=== PATIENT | male | born 1975 | race Caucasian/White ===

== ENCOUNTER 2016-10-31 14:56 | Emergency (ER) | payer MEDICAID ==
[2016-10-31] MEDS ORDERED: NORMAL SALINE 1000 ML 1,000 ML IV PRN (15:53)
[2016-10-31 16:34] LABS: ABSOLUTE BASOPHILS # (AUTO) 0.1 10^3/uL (0.0-0.2); ABSOLUTE EOSINOPHILS # (AUTO) 0.2 10^3/uL (0.0-0.6); ABSOLUTE LYMPHOCYTES (AUTO) 0.6 10^3/uL (0.5-4.7); BASOPHILS % (AUTO) 0.9 % (0-2); EOSINOPHILS % (AUTO) 1.5 % (0-6); HEMOGLOBIN 16.5 g/dL (13.5-17.0); HGB HCT DIFFERENCE 0.5; LYMPHOCYTES % (AUTO) 5.5 % (13-45); MEAN CORPUSCULAR HEMOGLOBIN 36.1 pg (27.0-33.4); MEAN CORPUSCULAR HGB CONC 33.5 g/dL (32.0-36.0); MEAN CORPUSCULAR VOLUME 108 fl (80-97); RED BLOOD COUNT 4.56 10^6/uL (4.35-5.55); RED CELL DISTRIBUTION WIDTH 17.9 % (11.5-14.0); SEGMENTED NEUTROPHILS % (AUTO) 83.1 % (42-78); WHITE BLOOD COUNT 10.9 10^3/uL (4.0-10.5)
[2016-10-31 16:50] LABS: ANION GAP 8 (5-19); BLOOD UREA NITROGEN 7 mg/dL (7-20); CALCIUM 9.1 mg/dL (8.4-10.2); CARBON DIOXIDE 29 mmol/L (22-30); CHLORIDE 104 mmol/L (98-107); CREATININE RESULT 0.76 mg/dL (0.52-1.25); GLUCOSE 94 mg/dL (75-110); SODIUM 140.5 mmol/L (137-145)
[2016-10-31 16:52] LABS: ALCOHOL < 10 mg/dL (NONE DETECTED)
[2016-10-31] MEDS ORDERED: LEVETIRACETAM 1000 MG/NACL-ISO 100 ML IV ONE (17:50)
--- NOTE | 2016-10-31 17:57 | ER Document Report ---
ED General - General Chief Complaint: Probable Seizure Stated Complaint: POSSIBLE SEIZURES TRAVEL OUTSIDE OF THE [place] IN LAST 30 DAYS: No - HPI Patient complains to provider of: possible seizures Notes: Patient coming in for evaluation seizures. States has a history of epilepsy and is on Dilantin however is undertaken his medication. Patient states he does drink approximately 340 ounces a day. Patient states he has continued to drink does not while stopping. Patient states that he has had 6 seizures always been unwitnessed. Otherwise patient has no complaints upon my evaluation. Denies fevers chills nausea vomiting - Related Data Allergies/Adverse Reactions: No Known Allergies Allergy (Verified 10/31/16 15:28) Past Medical History - Social History Smoking Status: Unknown if Ever Smoked Family History: None Neurological Medical History: Reports: Hx Seizures Musculoskeltal Medical History: Reports Hx Musculoskeletal Deformity, Reports Hx Musculoskeletal Trauma Psychiatric Medical History: Reports: Hx Depression Traumatic Medical History: Reports: Hx Spleen Laceration/Rupture, Hx Traumatic Brain Injury - 2009 Past Surgical History: Reports: Hx Abdominal Surgery - bowel obstruction colon resection, Hx Orthopedic Surgery - Shoulder, arm, and jaw surgery - Immunizations Immunizations up to date: Yes Hx Diphtheria, Pertussis, Tetanus Vaccination: Yes Review of Systems - Review of Systems Constitutional: No symptoms reported EENT: No symptoms reported Cardiovascular: No symptoms reported Respiratory: No symptoms reported Gastrointestinal: No symptoms reported Genitourinary: No symptoms reported Male Genitourinary: No symptoms reported Musculoskeletal: No symptoms reported Skin: No symptoms reported Hematologic/Lymphatic: No symptoms reported Neurological/Psychological: Seizure -: Yes All other systems reviewed and negative Physical Exam - Vital signs Vitals: Temp Pulse Resp BP Pulse Ox 97.8 F 78 18 124/68 95 10/31/16 15:28 10/31/16 15:28 10/31/16 15:28 10/31/16 15:28 10/31/16 15:28 Interpretation: Normal - General General appearance: Appears well, Alert - HEENT Head: Normocephalic, Atraumatic Eyes: Normal Pupils: PERRL - Respiratory Respiratory status: No respiratory distress Chest status: Nontender Breath sounds: Normal Chest palpation: Normal - Cardiovascular Rhythm: Regular Heart sounds: Normal auscultation Murmur: No - Abdominal Inspection: Normal Distension: No distension Bowel sounds: Normal Tenderness: Nontender Organomegaly: No organomegaly - Back Back: Normal, Nontender - Extremities General upper extremity: Normal inspection, Nontender, Normal color, Normal ROM , Normal temperature General lower extremity: Normal inspection, Nontender, Normal color, Normal ROM , Normal temperature, Normal weight bearing. No: Joel's sign - Neurological Neuro grossly intact: Yes Cognition: Normal Orientation: AAOx4 [place] Coma Scale Eye Opening: Spontaneous [place] Coma Scale Verbal: Oriented [place] Coma Scale Motor: Obeys Commands [place] Coma Scale Total: 15 Speech: Normal Motor strength normal: LUE, RUE, LLE, RLE Sensory: Normal - Psychological Associated symptoms: Normal affect, Normal mood - Skin Skin Temperature: Warm Skin Moisture: Dry Skin Color: Normal Course - Re-evaluation Re-evalutation: 10/31/16 22:30 Patient coming in for evaluation seizures.Breakthough seizure with known seizure disorder and previous neurology evaluation. Now returned to neuro baseline. Labs reviewed. No indication of new or acute process. Patient appears safe for discharge with observation and close outpatient F/U with PCP or neurology. Seizure warnings discussed with patient / family. Will load patient with Keppra - Vital Signs Vital signs: Temp Pulse Resp BP Pulse Ox 98.6 F 78 20 115/80 96 10/31/16 19:01 10/31/16 15:28 10/31/16 19:01 10/31/16 19:01 10/31/16 19:01 - Laboratory Result Diagrams: 10/31/16 16:16 10/31/16 16:16 Laboratory results interpreted by me: 10/31/16 10/31/16 16:16 16:16 WBC 10.9 H MCV 108 H MCH 36.1 H RDW 17.9 H Seg Neutrophils % 83.1 H Lymphocytes % 5.5 L Absolute Neutrophils 9.0 H Phenytoin < 3.0 L Discharge - Discharge Clinical Impression: Seizure, Noncompliance with medication regimen Disposition: HOME, SELF-CARE Instructions: Seizure, Known Epileptic ([facility]) Additional Instructions: Your laboratory studies today show no critical etiology. To help you prevent seizures you will need to take seizure medication. Your Dilantin level today is 0. Will try you on Keppra please be sure that you follow-up with your neurologist. Prescriptions: Levetiracetam [Keppra 500 mg Tablet] 500 mg PO Q12 #60 tablet
[2016-10-31 19:30] VITALS: BP 115/80
== END 2016-10-31 19:34 | disposition home or self-care (01) ==
LOC: ER 14:56
DX: G40.909 Epilepsy, unspecified, not intractable, without status epilepticus (principal); Z91.14 Patient's other noncompliance with medication regimen; Z87.820 Personal history of traumatic brain injury
CPT/HCPCS: 99284; 96361; 96374; 36415; 80307; 80185; 85025; 80048; J7030; J1953

== ENCOUNTER 2016-11-05 12:55 | Emergency (ER) | payer MEDICAID ==
[2016-11-05] MEDS ORDERED: ONDANSETRON HCL INJ/PF 4 MG/2 ML SDV IV ONE ×3 (13:51→14:44)
--- NOTE | 2016-11-05 14:06 | ER Document Report ---
ED Seizure - General Mode of Arrival: Medic Information source: Patient - HPI Patient complains to provider of: History of seizures Preceding symptoms/context: Recent alcohol intake Injuries: None Associated Symptoms: Other - Nausea <FRANCYCARRIEMIKHAIL - Last Filed: 11/05/16 15:01> <JOSE LUIS SALGADO - Last Filed: 11/17/16 13:03> - General Chief Complaint: Vomiting Stated Complaint: POSSIBLE SEIZURE Notes: Patient is a 41-year-old male presenting to the emergency department after having a seizure earlier today. Patient states that he drinks heavily, 10 beers daily on average. Patient was drinking heavily last night, and states that his last beer was in the middle of the night. Patient states that he has a history of seizures, and was put on Keppra, which he does not take because he says it does not help. Patient admits that he has never taken the medication on a regular basis. Patient denies being exposed to anyone with recent illness. (MIKHAIL SEN) - Related Data Allergies/Adverse Reactions: No Known Allergies Allergy (Verified 10/31/16 15:28) Past Medical History - General Information source: Patient - Social History Smoking Status: Unknown if Ever Smoked Frequency of alcohol use: Heavy Drug Abuse: None Lives with: Family Family History: None, Reviewed & Not Pertinent Neurological Medical History: Reports: Hx Seizures Musculoskeltal Medical History: Reports Hx Musculoskeletal Deformity, Reports Hx Musculoskeletal Trauma Psychiatric Medical History: Reports: Hx Depression Traumatic Medical History: Reports: Hx Spleen Laceration/Rupture, Hx Traumatic Brain Injury - 2009 Past Surgical History: Reports: Hx Abdominal Surgery - bowel obstruction colon resection, Hx Orthopedic Surgery - Shoulder, arm, and jaw surgery - Immunizations Immunizations up to date: Yes Hx Diphtheria, Pertussis, Tetanus Vaccination: Yes <MIKHAIL SEN - Last Filed: 11/05/16 15:01> Review of Systems - Review of Systems Constitutional: No symptoms reported EENT: No symptoms reported Cardiovascular: No symptoms reported Respiratory: No symptoms reported Gastrointestinal: See HPI, Nausea, Vomiting Genitourinary: No symptoms reported Male Genitourinary: No symptoms reported Musculoskeletal: No symptoms reported Skin: No symptoms reported Hematologic/Lymphatic: No symptoms reported Neurological/Psychological: See HPI, Seizure <MIKHAIL SEN - Last Filed: 11/05/16 15:01> Physical Exam - Vital signs Interpretation: Hypertensive - General General appearance: Alert - HEENT Head: Normocephalic, Atraumatic Eyes: Normal Pupils: PERRL - Respiratory Respiratory status: No respiratory distress Chest status: Nontender Breath sounds: Normal Chest palpation: Normal - Cardiovascular Rhythm: Regular Heart sounds: Normal auscultation Murmur: No - Abdominal Inspection: Normal Distension: No distension Bowel sounds: Normal Tenderness: Nontender Organomegaly: No organomegaly - Back Back: Normal, Nontender - Extremities General upper extremity: Normal inspection, Nontender, Normal color, Normal ROM , Normal temperature General lower extremity: Normal inspection, Nontender, Normal color, Normal ROM , Normal temperature - Neurological Neuro grossly intact: Yes Cognition: Normal [place] Coma Scale Eye Opening: Spontaneous [place] Coma Scale Verbal: Oriented Matthew Coma Scale Motor: Obeys Commands Matthew Coma Scale Total: 15 Speech: Normal - Psychological Associated symptoms: Normal affect, Agitated - Skin Skin Temperature: Warm Skin Moisture: Dry Skin Color: Normal <MIKHAIL SEN - Last Filed: 11/05/16 15:01> Course <MIKHAIL SEN - Last Filed: 11/05/16 15:01> - Laboratory Result Diagrams: 11/05/16 14:56 11/05/16 14:56 <JOSE LUIS SALGADO - Last Filed: 11/17/16 13:03> - Re-evaluation Re-evalutation: 11/05/16 22:21 I personally performed the services described in the documentation, reviewed and edited the documentation which was dictated to my scribe in my presence, and it accurately records my words and actions. Patient presents emergency department status post seizure. Patient has a history of chronic disease or disorder noncompliant on medications and chronic alcoholism. Seen and evaluated recently ED doc put him on Keppra for recurrent seizures. Positive for cocaine and alcohol last drink last night. Alcohol level is negative here. Patient had a witnessed seizure in the ER. Nonfocal in nature loaded with Dilantin back to baseline mental status no neurological deficits. Given fluids reassessment awake and alert GCS of 15 no neurological deficits tolerating by mouth fluids ambulatory wants to go home. Long discussion with the patient on usage of the seizure medications to prevent recurrent seizures. In addition to that mixing that with alcohol and cocaine. Patient does not recollect when he last used cocaine but is in his system so to the last 48 hours. EKG is stable no chest pain or cardiac complaints. Wants to go home has a significant other that I can take him home at this point. Given him instructions to take his Keppra which he says he has at home and is felt. Primary care physician one to 2 days return for increasing worsening or new symptoms 11/05/16 22:25 (JOSE LUIS SALGADO) - Vital Signs Vital signs: Temp Pulse Resp BP Pulse Ox 97.6 F 93 12 134/97 H 96 11/05/16 23:20 11/05/16 14:01 11/05/16 23:18 11/05/16 23:18 11/05/16 23:18 (JOSE LUIS SALGADO) - Laboratory Laboratory results interpreted by me: 11/05/16 11/05/16 11/05/16 14:56 14:56 16:47 WBC 12.7 H MCV 106 H MCH 36.1 H RDW 16.8 H Seg Neuts % (Manual) 89 H Lymphocytes % (Manual) 4 L Abs Neuts (Manual) 11.3 H Potassium 3.5 L BUN 5 L Urine Protein 30 H Urine Ketones 20 H Urine Blood SMALL H Salicylates < 1.0 L Acetaminophen < 10 L (JOSE LUIS SALGADO) - EKG Interpretation by Me Additional EKG results interpreted by me: 11/05/16 22:25 EKG interpreted by myself to reveal sinus rhythm at [address] segment elevation or depression (JOSE LUIS SALGADO) Discharge <MIKHAIL SEN - Last Filed: 11/05/16 15:01> <JOSE LUIS SALGADO - Last Filed: 11/17/16 13:03> - Discharge Clinical Impression: seizure disorder with history of seizure, cocaine positive tox screen, History of alcohol abuse Condition: Stable Disposition: HOME, SELF-CARE Additional Instructions: Seizure, Known Epileptic You have had a seizure. Seizures may "break through" in an epileptic due to stress of infection or injury, a change in blood chemistry, or drug and alcohol use. Another common cause is failure to take medication as prescribed. Your doctor has evaluated your situation for the likely cause of this seizure. It is important that you follow his advice concerning any medication changes and follow-up care. Further testing of anti-seizure medication levels in your blood may be necessary. If you have a intermodal truck driver's license, it's important that you DO NOT DRIVE until given permission by your physician. This seizure must be reported to the intermodal truck driver 's license bureau. Call the doctor or return if seizures recur, or if new or unusual symptoms arise -- such as severe headache, confusion, excessive sleepiness, local weakness or numbness, neck stiffness, or fever. Cocaine Abuse Cocaine causes many dangerous medical problems. Problems can occur even with "usual" amounts. Cocaine affects judgement, creating a sense of invulnerability. Cocaine users often make bad decisions that seem "great" at the time. Most cocaine users eventually will be hurt by bad job performance, damaged personal relations, crime, and unsafe sexual practices. Toxic effects of cocaine can include seizures, hallucinations, delusions, high blood pressure, heart damage, or sudden . There's always the risk of a "bad batch." But heart attacks, brain hemorrhages, or cardiac arrest can occur unpredictably even with "normal" use. Injection of cocaine is risky for abscesses, endocarditis (heart infection) , pneumonia, and AIDS. Withdrawal from cocaine often causes anxiety and drug cravings. Some users become paranoid and psychotic. Many treatment programs are available, but you must make the decision to quit. Medication can be prescribed to control the symptoms of cocaine toxicity (beta blockers or benzodiazepines). Withdrawal symptoms may require tranquilizers. Vomiting Vomiting can be part of many illnesses. Most cases of vomiting are due to gastroenteritis, usually a viral infection in the intestinal tract. There is no specific treatment. The disease will end by itself. For now, the main danger to your child is dehydration. During the first few hours of the illness, give clear liquids, such as Pedialyte. Try to give small quantities frequently, such as a teaspoon of liquid every minute or about an ounce of fluids every five to ten minutes. Medications may be prescribed by the physician for special cases. After an hour or two of fluids without vomiting, add rice cereal, toast, applesauce, or bananas and other more solid foods to the clear liquids. Call the physician or go to the hospital if vomiting increases or blood appears in the bowel movement or vomitus; if your child fails to improve, or if signs of dehydration occur (no wet diapers for eight to twelve hours, tongue and mouth become dry, not acting as alert as usual). Referrals: [facility] [Provider Group] - Follow up as needed (Follow-up in 1- 2 days return for increasing worsening or new symptoms. Please take seizure medication as prescribed. Return to the ER sooner for increasing worsening or new symptoms) Scribe Documentation - Scribe Written by Roselinee:: Mikhail Sen 11/05/2016 1405 acting as scribe for :: Supa <MIKHAIL SEN - Last Filed: 11/05/16 15:01>
[2016-11-05] MEDS ORDERED: NORMAL SALINE 1000 ML 1,000 ML IV ONE (14:44)
[2016-11-05 15:19] LABS: HEMATOCRIT 48.6 % (37.9-51.0); HEMOGLOBIN 16.5 g/dL (13.5-17.0); HGB HCT DIFFERENCE 0.9; MEAN CORPUSCULAR HEMOGLOBIN 36.1 pg (27.0-33.4); MEAN CORPUSCULAR VOLUME 106 fl (80-97); RED BLOOD COUNT 4.58 10^6/uL (4.35-5.55); RED CELL DISTRIBUTION WIDTH 16.8 % (11.5-14.0); WHITE BLOOD COUNT 12.7 10^3/uL (4.0-10.5)
[2016-11-05 15:36] LABS: ALANINE AMINOTRANSFERASE 21 U/L (21-72); ALCOHOL < 10 mg/dL (NONE DETECTED); ALKALINE PHOSPHATASE 114 U/L (38-126); ANION GAP 11 (5-19); ASPARTATE AMINO TRANSFERASE 40 U/L (17-59); BLOOD UREA NITROGEN 5 mg/dL (7-20); CALCIUM 9.2 mg/dL (8.4-10.2); CARBON DIOXIDE 29 mmol/L (22-30); CHLORIDE 101 mmol/L (98-107); CREATININE RESULT 0.65 mg/dL (0.52-1.25); GLUCOSE 104 mg/dL (75-110); POTASSIUM 3.5 mmol/L (3.6-5.0); SODIUM 141.4 mmol/L (137-145); TOTAL PROTEIN 7.9 g/dL (6.3-8.2)
[2016-11-05] MEDS ORDERED: PHENYTOIN SODIUM INJ/PF 250 MG/5 ML SDV IV ONE (15:54)
[2016-11-05 15:55] LABS: BASOPHILS % (MANUAL) 0 % (0-2); EOSINOPHILS % (MANUAL) 0 % (0-6); LYMPHOCYTES % (MANUAL) 4 % (13-45); TOTAL CELLS COUNTED 100
[2016-11-05 15:57] LABS: ANISOCYTOSIS 1+; POLYCHROMASIA SLIGHT; TARGET CELLS SLIGHT; TOXIC GRANULATION SLIGHT
[2016-11-05 17:34] LABS: URINE BARBITURATES SCREEN NEGATIVE; URINE METHADONE SCREEN NEGATIVE; URINE OPIATES LOW NEGATIVE; URINE PHENCYCLIDINE SCREEN NEGATIVE
[2016-11-05 17:35] LABS: APPEARANCE,URINE CLEAR; BILIRUBIN,URINE NEGATIVE (NEGATIVE); GLUCOSE, URINE NEGATIVE (NEGATIVE); KETONES,URINE 20 mg/dL (NEGATIVE); LEUKOCYTE ESTERASE,URINE NEGATIVE (NEGATIVE); NITRITE,URINE NEGATIVE (NEGATIVE); PROTEIN,URINE 30 mg/dL (NEGATIVE); URINE SPECIFIC GRAVITY 1.011; UROBILINOGEN,URINE NEGATIVE mg/dL (<2.0)
[2016-11-05 23:35] VITALS: BP 134/97
--- NOTE | 2016-11-06 08:32 | EKG REPORT ---
SEVERITY:- NORMAL ECG - SINUS RHYTHM : Confirmed by: Guillermo Toro MD 06-Nov-2016 08:31:29
--- NOTE | 2016-11-06 08:32 | EKG REPORT ---
SEVERITY:- ABNORMAL ECG - SINUS RHYTHM ABNRM R PROG, CONSIDER ASMI OR LEAD PLACEMENT : Confirmed by: Guillermo Toro MD 06-Nov-2016 08:31:19
== END 2016-11-05 23:25 | disposition home or self-care (01) ==
LOC: ER 12:55
DX: G40.909 Epilepsy, unspecified, not intractable, without status epilepticus (principal); F14.90 Cocaine use, unspecified, uncomplicated; F10.20 Alcohol dependence, uncomplicated; R11.2 Nausea with vomiting, unspecified; Z91.14 Patient's other noncompliance with medication regimen; Z87.820 Personal history of traumatic brain injury
CPT/HCPCS: 93005; 96376; 99285; 96361; 96374; 96375; 36415; 80307 ×4; 85025; 80053; 81001; 70450; 93010; J1165; J2405; J7030

== ENCOUNTER 2017-04-08 12:27 | Emergency (ER) | payer MEDICAID ==
[2017-04-08] MEDS ORDERED: NORMAL SALINE 1000 ML 1,000 ML IV ONE ×2 (13:14→14:47)
[2017-04-08] MEDS ORDERED: ONDANSETRON HCL INJ/PF 4 MG/2 ML SDV IV ONE (13:14)
[2017-04-08] MEDS ORDERED: METOCLOPRAMIDE HCL INJ/PF 10 MG/2 ML SDV IV ONE (13:51)
[2017-04-08 14:06] LABS: ABSOLUTE LYMPHOCYTES (AUTO) 0.8 10^3/uL (0.5-4.7); ABSOLUTE NEUT (AUTO) 8.1 10^3/uL (1.7-8.2); BASOPHILS % (AUTO) 0.2 % (0-2); EOSINOPHILS % (AUTO) 0.2 % (0-6); HEMATOCRIT 51.1 % (37.9-51.0); HEMOGLOBIN 17.5 g/dL (13.5-17.0); HGB HCT DIFFERENCE 1.4; LYMPHOCYTES % (AUTO) 7.8 % (13-45); MEAN CORPUSCULAR HEMOGLOBIN 34.3 pg (27.0-33.4); MEAN CORPUSCULAR HGB CONC 34.3 g/dL (32.0-36.0); MEAN CORPUSCULAR VOLUME 100 fl (80-97); MONOCYTES % (AUTO) 10.1 % (3-13); RED BLOOD COUNT 5.11 10^6/uL (4.35-5.55); SEGMENTED NEUTROPHILS % (AUTO) 81.7 % (42-78)
[2017-04-08 14:30] LABS: ALANINE AMINOTRANSFERASE 34 U/L (21-72); ALBUMIN 4.6 g/dL (3.5-5.0); ALKALINE PHOSPHATASE 65 U/L (38-126); ANION GAP 18 (5-19); ASPARTATE AMINO TRANSFERASE 42 U/L (17-59); BILIRUBIN,DIRECT 0.3 mg/dL (0.0-0.4); BLOOD UREA NITROGEN 8 mg/dL (7-20); CALCIUM 9.2 mg/dL (8.4-10.2); CARBON DIOXIDE 22 mmol/L (22-30); CHLORIDE 92 mmol/L (98-107); CREATININE RESULT 0.76 mg/dL (0.52-1.25); GLUCOSE 130 mg/dL (75-110); LIPASE 128.1 U/L (23-300); SODIUM 131.8 mmol/L (137-145); TOTAL PROTEIN 8.1 g/dL (6.3-8.2)
--- NOTE | 2017-04-08 14:48 | ER Document Report ---
ED GI/ - General Chief Complaint: Nausea/Vomiting/Diarrhea Stated Complaint: NAUSEA Time Seen by Provider: 04/08/17 13:13 Mode of Arrival: Ambulatory Information source: Patient Notes: Patient is a 41-year-old male with a history of seizures and alcohol abuse who presents to the ER today for nausea, vomiting, diarrhea 3 days. Patient states that he drank one night, woke up the next with nausea and vomiting and has not been able to drink since. He states that he cannot stop vomiting. He denies any alcohol use for 3 days. He denies any fevers but admits to chills. He denies any abdominal pain at all. TRAVEL OUTSIDE OF THE [place] IN LAST 30 DAYS: No - Related Data Allergies/Adverse Reactions: No Known Allergies Allergy (Verified 04/08/17 12:37) Past Medical History - General Information source: Patient - Social History Smoking Status: Unknown if Ever Smoked Family History: None, Reviewed & Not Pertinent Neurological Medical History: Reports: Hx Seizures Renal/ Medical History: Denies: Hx Peritoneal Dialysis Musculoskeltal Medical History: Reports Hx Musculoskeletal Deformity, Reports Hx Musculoskeletal Trauma Psychiatric Medical History: Reports: Hx Depression Traumatic Medical History: Reports: Hx Spleen Laceration/Rupture, Hx Traumatic Brain Injury - 2009 Past Surgical History: Reports: Hx Abdominal Surgery - bowel obstruction colon resection, Hx Orthopedic Surgery - Shoulder, arm, and jaw surgery - Immunizations Immunizations up to date: Yes Hx Diphtheria, Pertussis, Tetanus Vaccination: Yes Review of Systems - Review of Systems Constitutional: See HPI EENT: No symptoms reported Cardiovascular: No symptoms reported Respiratory: No symptoms reported Gastrointestinal: See HPI Genitourinary: No symptoms reported Male Genitourinary: No symptoms reported Musculoskeletal: No symptoms reported Skin: No symptoms reported Hematologic/Lymphatic: No symptoms reported Neurological/Psychological: See HPI Physical Exam - Vital signs Vitals: Temp Pulse Resp BP Pulse Ox 97.5 F 133 H 16 123/89 H 96 04/08/17 12:39 04/08/17 12:39 04/08/17 12:39 04/08/17 12:39 04/08/17 12:39 - Notes Notes: PHYSICAL EXAMINATION: GENERAL: Actively vomiting, in mild acute distress. HEAD: Atraumatic, normocephalic. EYES: Pupils equal round and reactive to light, extraocular movements intact, sclera anicteric, conjunctiva are normal. NECK: Normal range of motion, supple without lymphadenopathy LUNGS: CTAB and equal. No wheezes rales or rhonchi. HEART: Regular rate and rhythm without murmurs ABDOMEN: Soft, no tenderness. No guarding, no rebound BACK: no vertebral tenderness, normal ROM GI/: no CVA tenderness EXTREMITIES: Normal range of motion, no pitting edema. No cyanosis. NEUROLOGICAL: Cranial nerves grossly intact. Normal sensory/motor exams. PSYCH: Normal mood, normal affect. SKIN: Warm, clammy, normal turgor, no rashes or lesions noted Course - Re-evaluation Re-evalutation: 04/08/17 15:03 pt having seizure as I walked into the room to check on him. last approximately 2 minutes with foaming at the mouth, turned pt on his side and he came to, is post ictal. keppra dose ordered. ativan 1mg given iv. 04/08/17 17:40 Patient is alert and oriented, able to answer questionsafter seizure he had here in the emergency department. Patient's vitals are stable, he is not tachycardic with a normal blood pressure and oxygen saturation, respiratory rate. Patient to be discharged as he "wants to catch the bus." I will send him home with some nausea medication and he wants a refill on his Keppra. Not vomited here in the emergency department since being given Reglan and Zofran. - Vital Signs Vital signs: Temp Pulse Resp BP Pulse Ox 97.5 F 133 H 16 117/84 95 04/08/17 12:39 04/08/17 12:39 04/08/17 15:51 04/08/17 15:51 04/08/17 15:51 - Laboratory Result Diagrams: 04/08/17 13:50 04/08/17 13:50 Laboratory results interpreted by me: 04/08/17 04/08/17 13:50 13:50 Hgb 17.5 H Hct 51.1 H MCV 100 H MCH 34.3 H Seg Neutrophils % 81.7 H Lymphocytes % 7.8 L Sodium 131.8 L Chloride 92 L Glucose 130 H Discharge - Discharge Clinical Impression: Seizure Nausea & vomiting Qualifiers: Vomiting type: unspecified Vomiting Intractability: non-intractable Qualified Code(s): R11.2 - Nausea with vomiting, unspecified Condition: Stable Disposition: HOME, SELF-CARE Instructions: Intravenous (IV) Fluids ([facility]), Vomiting ([facility]) Additional Instructions: please take your keppra. Return immediately for any new or worsening symptoms. Follow up with primary care provider, call tomorrow to make followup appointment. Prescriptions: Levetiracetam [Keppra 500 mg Tablet] 500 mg PO Q12 #14 tablet Metoclopramide HCl [Reglan 10 mg Tablet] 1 - 2 tab PO ASDIR PRN #25 tablet PRN Reason: Ondansetron [Zofran Odt 4 mg Tablet] 1 - 2 tab PO Q4H PRN #15 tab.rapdis PRN Reason: For Nausea/Vomiting
[2017-04-08] MEDS ORDERED: LORAZEPAM INJ 2 MG/1 ML VIAL ONE (14:54)
[2017-04-08] MEDS ORDERED: LEVETIRACETAM 1500 MG/NACL-ISO 100 ML IV ONE (15:02)
[2017-04-08] MEDS ORDERED: NORMAL SALINE 1000 ML 1,000 ML IV PRN (17:22)
[2017-04-08] MEDS ORDERED: LORAZEPAM INJ 2 MG/1 ML VIAL (TAPER DOSING) IV SCH (17:30)
[2017-04-08] MEDS ORDERED: LORAZEPAM INJ 2 MG/ML VIAL (4 MG PRN DOSE) IV (17:30)
[2017-04-08] MEDS ORDERED: ONDANSETRON ODT 4 MG TAB (6 TAB/DSPK) PO PRN (17:43)
[2017-04-08 17:47] LABS: ALANINE AMINOTRANSFERASE 35 U/L (21-72); ALBUMIN 3.8 g/dL (3.5-5.0); ALKALINE PHOSPHATASE 53 U/L (38-126); ANION GAP 13 (5-19); ASPARTATE AMINO TRANSFERASE 33 U/L (17-59); BILIRUBIN,DIRECT 0.3 mg/dL (0.0-0.4); BILIRUBIN,TOTAL 0.8 mg/dL (0.2-1.3); BLOOD UREA NITROGEN 7 mg/dL (7-20); CALCIUM 8.2 mg/dL (8.4-10.2); CARBON DIOXIDE 23 mmol/L (22-30); CHLORIDE 97 mmol/L (98-107); CREATININE RESULT 0.74 mg/dL (0.52-1.25); GLUCOSE 87 mg/dL (75-110); POTASSIUM 4.2 mmol/L (3.6-5.0)
[2017-04-08] MEDS ORDERED: NORMAL SALINE 1000 ML 1,000 ML with POTASSIUM CHLORIDE 20 MEQ, THIAMINE HCL 100 MG, MVI... IV SCH ×4 (18:00)
[2017-04-08 19:21] VITALS: BP 101/70
== END 2017-04-08 19:35 | disposition home or self-care (01) ==
LOC: ER 12:27
DX: R11.2 Nausea with vomiting, unspecified (principal); R19.7 Diarrhea, unspecified; R68.83 Chills (without fever); R56.9 Unspecified convulsions
CPT/HCPCS: 99284; 96361; 96375; 96365; 36415; 80177; 80307; 83690; 85025; 80053; J2765; J2060; J2405; J7030; J1953

== ENCOUNTER 2017-04-14 09:38 | Emergency (ER) | payer MEDICAID ==
[2017-04-14] MEDS ORDERED: NORMAL SALINE 1000 ML 1,000 ML IV ONE (09:51)
[2017-04-14] MEDS ORDERED: LORAZEPAM INJ 2 MG/1 ML VIAL IV ONE ×2 (09:52→15:52)
--- NOTE | 2017-04-14 09:52 | ER Document Report ---
ED Seizure - General Mode of Arrival: Ambulatory Information source: Patient - General Chief Complaint: Seizure Stated Complaint: POSSIBLE SEIZURE Time Seen by Provider: 04/14/17 09:47 Notes: Is a 41-year-old male with history of seizures who presents to the ER today for a seizure this morning. His roommates heard him seizing in the room, went in and found him, do not have a long he was seizing. Patient does not know what seizure medication he takes, Dilantin or Keppra as he does have bottles for both at home and is unsure of which one he is actually taking or how often he actually takes it. Patient is a poor historian and has a history of being noncompliant with his medications. He admits that he is tired at this time but has no other complaints. (CLINT ALEXANDER) - Related Data Allergies/Adverse Reactions: No Known Allergies Allergy (Verified 04/08/17 12:37) Past Medical History - General Information source: Patient - Social History Smoking Status: Current Every Day Smoker Family History: None, Reviewed & Not Pertinent Neurological Medical History: Reports: Hx Seizures Renal/ Medical History: Denies: Hx Peritoneal Dialysis Musculoskeltal Medical History: Reports Hx Musculoskeletal Deformity, Reports Hx Musculoskeletal Trauma Psychiatric Medical History: Reports: Hx Depression Traumatic Medical History: Reports: Hx Spleen Laceration/Rupture, Hx Traumatic Brain Injury - 2009 Past Surgical History: Reports: Hx Abdominal Surgery - bowel obstruction colon resection, Hx Orthopedic Surgery - Shoulder, arm, and jaw surgery - Immunizations Immunizations up to date: Yes Hx Diphtheria, Pertussis, Tetanus Vaccination: Yes Review of Systems - Review of Systems Constitutional: No symptoms reported EENT: No symptoms reported Cardiovascular: No symptoms reported Respiratory: No symptoms reported Gastrointestinal: No symptoms reported Genitourinary: No symptoms reported Male Genitourinary: No symptoms reported Musculoskeletal: No symptoms reported Skin: No symptoms reported Hematologic/Lymphatic: No symptoms reported Neurological/Psychological: See HPI Physical Exam - Vital signs Vitals: Temp Pulse Resp BP Pulse Ox 97.9 F 81 16 113/78 97 04/14/17 09:54 04/14/17 09:54 04/14/17 09:54 04/14/17 09:54 04/14/17 09:54 - Notes Notes: PHYSICAL EXAMINATION: GENERAL: post-ictal, in no acute distress. HEAD: Atraumatic, normocephalic. EYES: Pupils equal round and reactive to light, extraocular movements intact, sclera anicteric, conjunctiva are normal. OROPHARYNX: no bleeding, no lacerations, airway patent NECK: Normal range of motion, supple without lymphadenopathy LUNGS: CTAB and equal. No wheezes rales or rhonchi. HEART: Regular rate and rhythm without murmurs ABDOMEN: Soft, no tenderness. No guarding, no rebound BACK: no vertebral tenderness, normal ROM GI/: no CVA tenderness EXTREMITIES: Normal range of motion, no pitting edema. No cyanosis. NEUROLOGICAL: Cranial nerves grossly intact. Normal sensory/motor exams. PSYCH: Normal mood, normal affect. SKIN: Warm, Dry, normal turgor, no rashes or lesions noted (CLINT ALEXANDER) Course - Re-evaluation Re-evalutation: 04/15/17 05:15 Spoke with Clint the left knee at about 9:00 when I found that the patient was told in the emergency room. She stated that the patient was supposed to be discharged home at 7:00. Spoke with the nurse who stated that the patient was not alert and oriented and not competent enough to be sent home at this time and that she could not find a phone number for his girlfriend. The phone number that the patient gives me is a number for his neighbor Lizet. He states he does not understand why that numbers ringing in a cavity and number because that is number. He has been resting quietly all night with no seizures. (ILEANA NORRIS) 04/14/17 12:07 I gave patient Keppra a few days ago when he was here at the emergency department. I have advised him to get this prescription filled and follow-up with primary care provider. I will not prescribe him Dilantin today although his Dilantin level is low, because he is not taking it as he does bring a full bottle from June 2016 and today. 04/14/17 17:38 Pt was up for discharge, but had another seizure here and fell and hit his head. He has a 1cm laceration to the right eyebrow. CT head and neck were negative after fall, c collar was placed immediately following fall and removed after c spine cleared. 1cm laceration was repaired with dermabond. pt was loaded up with IV keppra and given more ativan. 04/14/17 17:41 pt received tetanus booster here. 04/15/17 09:28 When I arrived this morning, pt was still here. Pt is alert and oriented to person, place and time, knows where he lives, can tell me his address and the name of his girlfriend, child, wants to go home, is unsure why he's been here all night. Has not had a seizure all night, has received multiple doses of keppra, has keppra at home I prescribed him a few days ago. I've advised him to take it as prescribed. The girlfriend was finally reached and states this is his address (the same one he's been giving the provider all night) and that he should go home there, wants him to be discharged to go home. She states she can' t pick him up. He says he'll catch a cab. (CLINT ALEXANDER) - Vital Signs Vital signs: Temp Pulse Resp BP Pulse Ox 98.1 F 59 L 18 109/58 L 97 04/15/17 09:58 04/15/17 09:58 04/15/17 09:58 04/15/17 09:58 04/15/17 09:58 - Laboratory Laboratory results interpreted by me: 04/14/17 10:49 Phenytoin < 3.0 L Procedures - Laceration/Wound Repair Right Face Time completed: 17:40 Wound length (cm): 1 Wound's Depth, Shape: Superficial, Linear Laceration pre-procedure: Shur-Clens applied Wound Repaired With: Dermabond Discharge - Discharge Clinical Impression: Seizure Laceration of eyebrow Qualifiers: Encounter type: initial encounter Laterality: right Qualified Code(s): S01.111A - Laceration without foreign body of right eyelid and periocular area, initial encounter Head injury Qualifiers: Encounter type: initial encounter Qualified Code(s): S09.90XA - Unspecified injury of head, initial encounter Condition: Stable Disposition: HOME, SELF-CARE Additional Instructions: Take your seizure medication! Return immediately for any new or worsening symptoms. Follow up with primary care provider, call tomorrow to make followup appointment. Referrals: HUDSON CHAHAL NP [Primary Care Provider] - Follow up as needed
[2017-04-14] MEDS ORDERED: LEVETIRACETAM 1500 MG/NACL-ISO 100 ML IV ONE (13:42)
--- NOTE | 2017-04-14 14:26 | RADIOLOGY REPORT (SQ) ---
EXAM DESCRIPTION: CT CERVICAL SPINE WITHOUT COMPLETED DATE/TIME: 04/14/2017 2:13 pm REASON FOR STUDY: seizure, fall, laceration head COMPARISON: None. TECHNIQUE: Axial images acquired through the cervical spine without intravenous contrast. Images re viewed with lung, soft tissue and bone windows. Reconstructed coronal and sagittal MPR images review ed. Images stored on PACS. All CT scanners at this facility use dose modulation, iterative reconstruction, and/or weight based d osing when appropriate to reduce radiation dose to as low as reasonably achievable (ALARA). [facility]: Dose Right [facility]: CareDose [facility]: Dose Right [facility]: Teradose 4D [facility]: Smart [employer] RADIATION DOSE: Up-to-date CT equipment and radiation dose reduction techniques were employed. CTDIv ol: 13.6 mGy. DLP: 289 mGy-cm. mGy. LIMITATIONS: None. FINDINGS: ALIGNMENT: Anatomic. MINERALIZATION: Normal. VERTEBRAL BODIES: No fractures or dislocation. DISCS: No significant disc disease. FACETS, LATERAL MASSES, POSTERIOR ELEMENTS: No fractures. No dislocation. No acute findings. HARDWARE: None in the spine. VISUALIZED RIBS: No fractures. LUNG APICES AND SOFT TISSUES: No significant or acute findings. OTHER: No other significant finding. IMPRESSION: NO ACUTE OR SIGNIFICANT FINDINGS IN THE CERVICAL SPINE. TECHNICAL DOCUMENTATION: JOB ID: [id number] Quality ID # [id number]: Final reports with documentation of one or more dose reduction techniques (e.g., Au tomated exposure control, adjustment of the mA and/or kV according to patient size, use of iterative reconstruction technique) 2010 [employer]- All Rights Reserved
--- NOTE | 2017-04-14 14:27 | RADIOLOGY REPORT (SQ) ---
EXAM DESCRIPTION: CT HEAD WITHOUT COMPLETED DATE/TIME: 04/14/2017 2:13 pm REASON FOR STUDY: seizure, fall, laceration head COMPARISON: None. TECHNIQUE: Axial images acquired through the brain without intravenous contrast. Images reviewed wi th bone, brain and subdural windows. Images stored on PACS. All CT scanners at this facility use dose modulation, iterative reconstruction, and/or weight based d osing when appropriate to reduce radiation dose to as low as reasonably achievable (ALARA). [facility]: Dose Right [facility]: CareDose [facility]: Dose Right [facility]: Teradose 4D [facility]: Smart [employer] RADIATION DOSE: Up-to-date CT equipment and radiation dose reduction techniques were employed. CTDIv ol: 64.6 mGy. DLP: 1163 mGy-cm. mGy. LIMITATIONS: None. FINDINGS: VENTRICLES: Normal size and contour. CEREBRUM: No masses. No hemorrhage. No midline shift. Normal nielsen/white matter differentiation. N o evidence for acute infarction. CEREBELLUM: No masses. No hemorrhage. No alteration of density. No evidence for acute infarction. EXTRAAXIAL SPACES: No fluid collections. No masses. ORBITS AND GLOBE: No intra- or extraconal masses. Normal contour of globe without masses. CALVARIUM: No fracture. PARANASAL SINUSES: Small retention right maxillary sinus. SOFT TISSUES: No mass or hematoma. OTHER: No other significant finding. IMPRESSION: No acute posttraumatic changes. Small retention cyst right maxillary sinus. TECHNICAL DOCUMENTATION: JOB ID: [id number] Quality ID # [id number]: Final reports with documentation of one or more dose reduction techniques (e.g., Au tomated exposure control, adjustment of the mA and/or kV according to patient size, use of iterative reconstruction technique) 2010 [employer]- All Rights Reserved
[2017-04-14] MEDS ORDERED: DIPH/PERTUSS(ACELL)/TETANUS VAC/PF 0.5 ML SYR (>=10YO) IM ONE (17:41)
[2017-04-15] MEDS ORDERED: LEVETIRACETAM 500 MG TABLET PO ONE (05:09)
[2017-04-15 09:58] VITALS: BP 109/58
== END 2017-04-15 09:58 | disposition home or self-care (01) ==
LOC: ER 09:38
DX: R56.9 Unspecified convulsions (principal); T42.0X6A Underdosing of hydantoin derivatives, initial encounter; Z91.14 Patient's other noncompliance with medication regimen; S01.111A Laceration without foreign body of right eyelid and periocular area, initial encounter; W19.XXXA Unspecified fall, initial encounter; Y93.89 Activity, other specified; Y92.239 Unspecified place in hospital as the place of occurrence of the external cause; F17.200 Nicotine dependence, unspecified, uncomplicated
CPT/HCPCS: 96376; 99284; 96361; 90471; 96374; 96375; 36415; 80307; 80185; 70450; 72125; 90715; J2060; J3490; J7030; J1953

== ENCOUNTER 2017-04-26 12:48 | Emergency (ER) | payer MEDICAID ==
[2017-04-26 13:14] LABS: ABSOLUTE BASOPHILS # (AUTO) 0.1 10^3/uL (0.0-0.2); ABSOLUTE LYMPHOCYTES (AUTO) 1.8 10^3/uL (0.5-4.7); ABSOLUTE MONOCYTES (AUTO) 1.2 10^3/uL (0.1-1.4); ABSOLUTE NEUT (AUTO) 14.9 10^3/uL (1.7-8.2); BASOPHILS % (AUTO) 0.4 % (0-2); EOSINOPHILS % (AUTO) 0.2 % (0-6); HEMATOCRIT 49.7 % (37.9-51.0); HGB HCT DIFFERENCE 1.3; LYMPHOCYTES % (AUTO) 10.1 % (13-45); MEAN CORPUSCULAR HEMOGLOBIN 34.4 pg (27.0-33.4); MEAN CORPUSCULAR HGB CONC 34.1 g/dL (32.0-36.0); MEAN CORPUSCULAR VOLUME 101 fl (80-97); MONOCYTES % (AUTO) 6.7 % (3-13); RED BLOOD COUNT 4.93 10^6/uL (4.35-5.55); RED CELL DISTRIBUTION WIDTH 14.5 % (11.5-14.0); SEGMENTED NEUTROPHILS % (AUTO) 82.6 % (42-78)
--- NOTE | 2017-04-26 13:14 | ER Document Report ---
ED General - General Stated Complaint: SEIZURE Time Seen by Provider: 04/26/17 12:55 Mode of Arrival: Medic Information source: Emergency Med Personnel Cannot obtain history due to: Altered mental status Notes: 41 yr old male presents with complaints of ems for seizure. pt has had last seizure 2 weeks ago. pt has hx of alcohol abuse. Pt not following commands and is altered TRAVEL OUTSIDE OF THE [place] IN LAST 30 DAYS: No - HPI Onset: Just prior to arrival Onset/Duration: Sudden Quality of pain: No pain Severity: Moderate Pain Level: Denies Associated symptoms: Other - altered Exacerbated by: Denies Relieved by: Denies Similar symptoms previously: Yes Recently seen / treated by doctor: Yes - Related Data Allergies/Adverse Reactions: No Known Allergies Allergy (Verified 04/08/17 12:37) Past Medical History - Social History Smoking Status: Current Every Day Smoker Cigarette use (# per day): Yes Chew tobacco use (# tins/day): No Smoking Education Provided: No Family History: None, Reviewed & Not Pertinent Neurological Medical History: Reports: Hx Seizures Renal/ Medical History: Denies: Hx Peritoneal Dialysis Musculoskeltal Medical History: Reports Hx Musculoskeletal Deformity, Reports Hx Musculoskeletal Trauma Psychiatric Medical History: Reports: Hx Depression Traumatic Medical History: Reports: Hx Spleen Laceration/Rupture, Hx Traumatic Brain Injury - 2009 Past Surgical History: Reports: Hx Abdominal Surgery - bowel obstruction colon resection, Hx Orthopedic Surgery - Shoulder, arm, and jaw surgery - Immunizations Immunizations up to date: Yes Hx Diphtheria, Pertussis, Tetanus Vaccination: Yes Review of Systems - Review of Systems Notes: ALL OTHER SYSTEMS REVIEWED AND NEGATIVE. Dictation was performed using [employer] voice recognition software PHYSICAL EXAMINATION: GENERAL: Well-appearing, well-nourished and in no acute distress. HEAD: Atraumatic, normocephalic. EYES: Pupils equal round and reactive to light, extraocular movements intact, sclera anicteric, conjunctiva are normal. ENT: Nares patent, oropharynx clear without exudates. Moist mucous membranes. NECK: Normal range of motion, supple without lymphadenopathy LUNGS: Breath sounds clear to auscultation bilaterally and equal. No wheezes rales or rhonchi. HEART: Regular rate and rhythm without murmurs ABDOMEN: Soft, nontender, nondistended abdomen. No guarding, no rebound. No masses appreciated. Musculoskeletal: Normal range of motion, no pitting or edema. No cyanosis. NEUROLOGICAL: pt not following commands appropriately, mild right arm and leg deficit noted. GCS 15 SKIN: Warm, Dry, normal turgor, no rashes or lesions noted. -: Yes ROS unobtainable due to patient's medical condition Physical Exam - Vital signs Vitals: Resp Pulse Ox 15 99 04/26/17 12:54 04/26/17 12:54 Course - Re-evaluation Re-evalutation: 04/26/17 13:10 I was asked by medic to walk into the room, at 1250 and noted that the patient was in the bed Patient is not completely oriented, does not follow commands appropriately, he does have some mild right-sided deficits as well, it is questionable if this is post ictal or if the patient is actually in fact having altered mental status secondary to another source, will send immediately for ct imaging 04/26/17 13:25 CT results was concerning for an ischemic left mca I reviewed the images and agree. I did walk over to MRI and attempted to have me MRI performed however there is a patient on the bed and the patient himself is altered unable to answer the MRI paperwork, attempts have been made to contact family regarding TPA or MRI, we are beginning to lose time on thrombolytics 04/26/17 13:28 Initial NIH score was 13 performed immediately on arrival of the patient's 04/26/17 13:40 04/26/17 13:57 Given the patient is altered I have been unable to contact family member and had no definitive diagnosis since he has a history of seizures and alcohol abuse and emergent MRI has been ordered. If this comes back positive for an ischemic stroke I do believe the risks are outweighed by the benefits of giving thrombolytics to the patient since he is so altered 04/26/17 14:24 MRI does confirm the acute CVA [facility] paged 04/26/17 14:24 04/26/17 14:[address] Maravilla accepts 04/26/17 14:43 04/26/17 16:02 Repeat NIH score is 11 performed 20 minutes after alteplase was given - Vital Signs Vital signs: Temp Pulse Resp BP Pulse Ox 98.6 F 65 16 130/100 H 97 04/26/17 12:57 04/26/17 15:25 04/26/17 15:25 04/26/17 15:25 04/26/17 15:25 - Laboratory Result Diagrams: 04/26/17 13:00 04/26/17 14:40 Laboratory results interpreted by me: 04/26/17 04/26/17 13:00 14:40 WBC 18.0 H MCV 101 H MCH 34.4 H RDW 14.5 H Plt Count 477 H Seg Neutrophils % 82.6 H Lymphocytes % 10.1 L Absolute Neutrophils 14.9 H Sodium 135.9 L - Diagnostic Test Radiology reviewed: Image reviewed, Reports reviewed - Acute CVA Critical Care Note - Critical Care Note Total time excluding time spent on procedures (mins): 110 Comments: 110 minutes of critical care time spent in direct contact evaluating and reevaluating the patient, treating symptoms, reviewing labs and studies and speaking with family and consultants excluding any procedures Discharge - Discharge Clinical Impression: Left acute arterial ischemic stroke, MCA (middle cerebral artery), Noncompliance with medication regimen Altered mental status Qualifiers: Altered mental status type: unspecified Qualified Code(s): R41.82 - Altered mental status, unspecified Condition: Critical Disposition: [facility] Referrals: HUDSON CHAHAL NP [Primary Care Provider] - Follow up as needed
[2017-04-26 13:18] LABS: PARTIAL THROMBOPLASTIN TIME 31.5 SEC (23.5-35.8)
[2017-04-26 13:21] LABS: PROTHROMBIN TIME 12.9 SEC (11.4-15.4)
--- NOTE | 2017-04-26 13:23 | RADIOLOGY REPORT (SQ) ---
EXAM DESCRIPTION: CHEST SINGLE VIEW COMPLETED DATE/TIME: 04/26/2017 1:14 pm REASON FOR STUDY: right sided deficit COMPARISON: 09/01/2016. EXAM PARAMETERS: NUMBER OF VIEWS: One view. TECHNIQUE: Single frontal radiographic view of the chest acquired. RADIATION DOSE: NA LIMITATIONS: None. FINDINGS: LUNGS AND PLEURA: No opacities, masses or pneumothorax. No pleural effusion. MEDIASTINUM AND HILAR STRUCTURES: No masses. Contour normal. HEART AND VASCULAR STRUCTURES: Heart normal in size. Normal vasculature. BONES: No acute findings. HARDWARE: None in the chest. OTHER: No other significant finding. IMPRESSION: NO ACUTE RADIOGRAPHIC FINDING IN THE CHEST. TECHNICAL DOCUMENTATION: JOB ID: [id number]
--- NOTE | 2017-04-26 13:23 | RADIOLOGY REPORT (SQ) ---
EXAM DESCRIPTION: CT HEAD WITHOUT COMPLETED DATE/TIME: 04/26/2017 1:08 pm REASON FOR STUDY: right sided deficit COMPARISON: None. TECHNIQUE: Axial images acquired through the brain without intravenous contrast. Images reviewed wi th bone, brain and subdural windows. Images stored on PACS. All CT scanners at this facility use dose modulation, iterative reconstruction, and/or weight based d osing when appropriate to reduce radiation dose to as low as reasonably achievable (ALARA). [facility]: Dose Right [facility]: CareDose [facility]: Dose Right [facility]: Teradose 4D [facility]: [employer] RADIATION DOSE: Up-to-date CT equipment and radiation dose reduction techniques were employed. CTDIv ol: 64.6 mGy. DLP: 1163 mGy-cm. mGy. LIMITATIONS: None. FINDINGS: VENTRICLES: Normal size and contour. CEREBRUM: Geographic low attenuation in the left MCA distribution. No evidence of hemorrhage or mass effect. CEREBELLUM: No masses. No hemorrhage. No alteration of density. No evidence for acute infarction. EXTRAAXIAL SPACES: No fluid collections. No masses. ORBITS AND GLOBE: No intra- or extraconal masses. Normal contour of globe without masses. CALVARIUM: No fracture. PARANASAL SINUSES: No fluid or mucosal thickening. SOFT TISSUES: No mass or hematoma. OTHER: No other significant finding. IMPRESSION: Acute, nonhemorrhagic infarct left MCA distribution. COMMENT: Pertinent positive or negative findings of the imaging study reported as a CRITICAL EXAM veda GERBER DO at13:17 on 04/26/2017. Category of Critical Exam: Stroke alert. TECHNICAL DOCUMENTATION: JOB ID: [id number] Quality ID # [id number]: Final reports with documentation of one or more dose reduction techniques (e.g., Au tomated exposure control, adjustment of the mA and/or kV according to patient size, use of iterative reconstruction technique) 2010 [employer]- All Rights Reserved
[2017-04-26] MEDS ORDERED: ALTEPLASE INJ 100 MG VIAL ONE (13:31)
--- NOTE | 2017-04-26 14:27 | RADIOLOGY REPORT (SQ) ---
EXAM DESCRIPTION: MRI HEAD WITHOUT COMPLETED DATE/TIME: 04/26/2017 2:17 pm REASON FOR STUDY: right sided deficit COMPARISON: None. TECHNIQUE: Multiplanar imaging includes non-contrasted T1, T2, FLAIR, and diffusion with ADC map seq uences. Images stored on PACS. LIMITATIONS: None. FINDINGS: ANATOMY: No anomalies. Normal vascular flow voids. Pituitary fossa normal. CSF SPACES: Normal in size and contour. No hemorrhage. CEREBRUM: Sulci and gyri normal in size and contour. No evidence of hemorrhage, mass, or extraaxial fluid collection. POSTERIOR FOSSA: No signal alteration. No hemorrhage. No edema, masses or mass effect. Internal farzana tory canals, cerebello-pontine angles, mastoids normal. DIFFUSION IMAGING: Geographic area of abnormal high signal on diffusion with corresponding low signal on ADC map corresponding to the CT findings of the same date. ORBITS: No masses. Globes normal. PARANASAL SINUSES: No fluid levels. Mucosa normal. OTHER: No other significant finding. IMPRESSION: Acute, nonhemorrhagic infarct left MCA distribution. EVIDENCE OF ACUTE STROKE: YES. LEFT MCA TECHNICAL DOCUMENTATION: JOB ID: [id number]- All Rights Reserved
[2017-04-26 15:10] LABS: ALANINE AMINOTRANSFERASE 21 U/L (21-72); ALCOHOL < 10 mg/dL (NONE DETECTED); ALKALINE PHOSPHATASE 70 U/L (38-126); ANION GAP 14 (5-19); ASPARTATE AMINO TRANSFERASE 21 U/L (17-59); BILIRUBIN,DIRECT 0.3 mg/dL (0.0-0.4); BILIRUBIN,TOTAL 0.9 mg/dL (0.2-1.3); BLOOD UREA NITROGEN 7 mg/dL (7-20); CALCIUM 9.3 mg/dL (8.4-10.2); CARBON DIOXIDE 22 mmol/L (22-30); CHLORIDE 100 mmol/L (98-107); CREATINE KINASE 78 U/L (55-170); GLUCOSE 83 mg/dL (75-110); POTASSIUM 4.7 mmol/L (3.6-5.0); SODIUM 135.9 mmol/L (137-145); TOTAL PROTEIN 7.3 g/dL (6.3-8.2)
[2017-04-26 15:19] LABS: CREATINE KINASE MB 0.45 ng/mL (<4.55); TROPONIN I < 0.012 ng/mL
[2017-04-26 15:21] VITALS: BP 130/100
[2017-04-26] MEDS ORDERED: ALTEPLASE INJ 100 MG VIAL IV ONE (15:38)
--- NOTE | 2017-04-27 03:38 | EKG REPORT ---
SEVERITY:- NORMAL ECG - SINUS RHYTHM : Confirmed by: Ayla Guardado MD 27-Apr-2017 03:37:57
== END 2017-04-26 15:25 | disposition short-term general hospital (02) ==
LOC: ER 12:48
DX: I63.9 Cerebral infarction, unspecified (principal); R41.82 Altered mental status, unspecified; Z91.14 Patient's other noncompliance with medication regimen; F17.210 Nicotine dependence, cigarettes, uncomplicated
CPT/HCPCS: 93005; 99291; 99292; 96365; 36415; 82553; 80307; 82550; 85025; 85610; 85730; 80053; 84484; 70551; 71010; 70450; 93010; J2997

== ENCOUNTER 2017-10-12 16:25 | Emergency (ER) | payer MEDICAID ==
[2017-10-12] MEDS ORDERED: KETOROLAC TROMETHAMINE 60 MG/2 ML SDV IM PRN (17:17)
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
--- NOTE | 2017-10-12 18:10 | RADIOLOGY REPORT (SQ) ---
EXAM DESCRIPTION: SHOULDER RIGHT 2 OR MORE VIEWS COMPLETED DATE/TIME: 10/12/2017 6:02 pm REASON FOR STUDY: Rt shoulder pain x 5 days COMPARISON: None. NUMBER OF VIEWS: Three views. TECHNIQUE: Internal rotation, external rotation, and Y view images acquired of the right shoulder. LIMITATIONS: None. FINDINGS: MINERALIZATION: Normal. BONES: No acute fracture or dislocation. No worrisome bone lesions. No significant osteophytes. GLENOHUMERAL JOINT: No significant findings. ACROMIOCLAVICULAR JOINT: No large osteophytes. SOFT TISSUES: No calcifications. VISUALIZED RIBS, SPINE, AND LUNG: No other significant finding. OTHER: No other significant finding. IMPRESSION: NEGATIVE STUDY OF THE RIGHT SHOULDER. NO EXPLANATION FOR PAIN. TECHNICAL DOCUMENTATION: JOB ID: [id number] [email or web address]- All Rights Reserved
[2017-10-12] MEDS ORDERED: KETOROLAC TROMETHAMINE 60 MG/2 ML SDV IM ONE (18:47)
[2017-10-12 19:08] VITALS: BP 106/74
== END 2017-10-12 19:09 | disposition home or self-care (01) ==
LOC: ER 16:25
DX: S43.401A Unspecified sprain of right shoulder joint, initial encounter (principal); X58.XXXA Exposure to other specified factors, initial encounter; M25.511 Pain in right shoulder; Z86.73 Personal history of transient ischemic attack (TIA), and cerebral infarction without residual deficits; Z98.890 Other specified postprocedural states
CPT/HCPCS: 99284; 96372; 73030; J1885

== ENCOUNTER → 2018-01-14 | Outpatient (CLI) | payer MEDICAID ==
[2018-01-14 10:54] LABS: HEMATOCRIT 48.3 % (37.9-51.0); HEMOGLOBIN 16.1 g/dL (13.5-17.0); MEAN CORPUSCULAR HEMOGLOBIN 31.2 pg (27.0-33.4); MEAN CORPUSCULAR HGB CONC 33.4 g/dL (32.0-36.0); MEAN CORPUSCULAR VOLUME 94 fl (80-97); PLATELET COUNT 406 10^3/uL (150-450); RED BLOOD COUNT 5.16 10^6/uL (4.35-5.55); RED CELL DISTRIBUTION WIDTH 13.9 % (11.5-14.0); WHITE BLOOD COUNT 14.5 10^3/uL (4.0-10.5)
[2018-01-14 10:58] LABS: ALANINE AMINOTRANSFERASE 39 U/L (21-72); ALBUMIN 4.8 g/dL (3.5-5.0); ALKALINE PHOSPHATASE 52 U/L (38-126); ANION GAP 14 (5-19); ASPARTATE AMINO TRANSFERASE 23 U/L (17-59); BILIRUBIN,DIRECT 0.4 mg/dL (0.0-0.4); BILIRUBIN,TOTAL 0.5 mg/dL (0.2-1.3); BLOOD UREA NITROGEN 10 mg/dL (7-20); CARBON DIOXIDE 25 mmol/L (22-30); CHLORIDE 104 mmol/L (98-107); CHOLESTEROL 204.69 mg/dL (0-200); GLUCOSE 71 mg/dL (75-110); POTASSIUM 4.6 mmol/L (3.6-5.0); SODIUM 143.1 mmol/L (137-145); TOTAL PROTEIN 7.8 g/dL (6.3-8.2); TRIGLYCERIDES 129 mg/dL (<150)
[2018-01-14 11:08] LABS: DIRECT LDL 127 mg/dL (<100)
== END ==
LOC: OD 09:05
PROVIDERS: ATTEND Family Medicine
DX: Z12.5 Encounter for screening for malignant neoplasm of prostate (principal); F01.50 Vascular dementia, unspecified severity, without behavioral disturbance, psychotic disturbance, mood disturbance, and anxiety; I63.9 Cerebral infarction, unspecified
CPT/HCPCS: 36415; 80053; 80061; 84153; 85027

== ENCOUNTER → 2018-01-22 | Outpatient (CLI) | payer MEDICAID | LOC: OD 10:21 | PROVIDERS: ATTEND Family Medicine | DX: Z12.5 Encounter for screening for malignant neoplasm of prostate (principal); F01.50 Vascular dementia, unspecified severity, without behavioral disturbance, psychotic disturbance, mood disturbance, and anxiety; I63.9 Cerebral infarction, unspecified | CPT/HCPCS: 36415; 84443 ==

== ENCOUNTER → 2018-02-09 | Outpatient (CLI) | payer MEDICAID ==
--- NOTE | 2018-02-09 16:01 | RADIOLOGY REPORT (SQ) ---
EXAM DESCRIPTION: CHEST PA/LATERAL COMPLETED DATE/TIME: 02/09/2018 3:28 pm REASON FOR STUDY: VASCULAR DEMENTIA WITHOUT BEHAVIORAL DISTURBANCE COMPARISON: 04/26/2017 EXAM PARAMETERS: NUMBER OF VIEWS: two views TECHNIQUE: Digital Frontal and Lateral radiographic views of the chest acquired. RADIATION DOSE: NA LIMITATIONS: none FINDINGS: LUNGS AND PLEURA: No opacities, masses or pneumothorax. No pleural effusion. MEDIASTINUM AND HILAR STRUCTURES: No masses or contour abnormalities. HEART AND VASCULAR STRUCTURES: Heart normal size. No evidence for failure. BONES: No acute findings. HARDWARE: None in the chest. OTHER: No other significant finding. IMPRESSION: NO SIGNIFICANT RADIOGRAPHIC FINDING IN THE CHEST. TECHNICAL DOCUMENTATION: JOB ID: [id number] [employer]- All Rights Reserved Reading location - IP/workstation name: [email or web address]
[2018-02-09 16:18] LABS: APPEARANCE,URINE SLIGHTLY-CLOUDY; BILIRUBIN,URINE NEGATIVE (NEGATIVE); COLOR,URINE YELLOW; GLUCOSE, URINE NEGATIVE (NEGATIVE); KETONES,URINE TRACE mg/dL (NEGATIVE); LEUKOCYTE ESTERASE,URINE NEGATIVE (NEGATIVE); NITRITE,URINE NEGATIVE (NEGATIVE); PROTEIN,URINE NEGATIVE (NEGATIVE); URINE SPECIFIC GRAVITY 1.018; UROBILINOGEN,URINE NEGATIVE mg/dL (<2.0)
[2018-02-09 16:25] LABS: HEMATOCRIT 44.3 % (37.9-51.0); MEAN CORPUSCULAR HEMOGLOBIN 31.5 pg (27.0-33.4); MEAN CORPUSCULAR HGB CONC 33.9 g/dL (32.0-36.0); MEAN CORPUSCULAR VOLUME 93 fl (80-97); PLATELET COUNT 424 10^3/uL (150-450); RED BLOOD COUNT 4.76 10^6/uL (4.35-5.55); RED CELL DISTRIBUTION WIDTH 14.1 % (11.5-14.0); WHITE BLOOD COUNT 9.5 10^3/uL (4.0-10.5)
== END ==
LOC: OD 14:57
PROVIDERS: ATTEND Family Medicine
DX: D72.829 Elevated white blood cell count, unspecified (principal); F01.50 Vascular dementia, unspecified severity, without behavioral disturbance, psychotic disturbance, mood disturbance, and anxiety
CPT/HCPCS: 36415; 71046; 81001; 85027; 87086

== ENCOUNTER 2018-08-16 18:32 | Emergency (ER) | payer MEDICAID ==
[2018-08-16] MEDS ORDERED: HYDROXYZINE PAMOATE 50 MG CAPSULE PO ONE (19:29)
--- NOTE | 2018-08-16 19:42 | ER Document Report ---
ED Psych Disorder / Suicide - General Chief Complaint: Anxiety Stated Complaint: POSSIBLE ANXIETY Time Seen by Provider: 08/16/18 19:09 Mode of Arrival: Medic Information source: Patient Notes: Patient is a 42-year-old male who resides at the [facility]. He presents to the emergency department via EMS for chief complaint of possible anxiety attack. Patient apparently has a past medical history of a TBI and substance abuse. He is a younger of the [facility]. According to the nurse's notes DSS teacher counselor is in route. TRAVEL OUTSIDE OF THE U.S. IN LAST 30 DAYS: No - Related Data Allergies/Adverse Reactions: No Known Allergies Allergy (Verified 04/08/17 12:37) Past Medical History - General Information source: Patient - Social History Smoking Status: Current Some Day Smoker Frequency of alcohol use: None Drug Abuse: Other - Former cocaine abuser Family History: None, Reviewed & Not Pertinent Patient has suicidal ideation: No Patient has homicidal ideation: No Neurological Medical History: Reports: Hx Seizures Renal/ Medical History: Denies: Hx Peritoneal Dialysis Musculoskeletal Medical History: Reports Hx Musculoskeletal Deformity, Reports Hx Musculoskeletal Trauma Psychiatric Medical History: Reports: Hx Depression Traumatic Medical History: Reports: Hx Spleen Laceration/Rupture, Hx Traumatic Brain Injury - 2009 Past Surgical History: Reports: Hx Abdominal Surgery - bowel obstruction colon resection, Hx Orthopedic Surgery - Shoulder, arm, and jaw surgery - Immunizations Immunizations up to date: Yes Hx Diphtheria, Pertussis, Tetanus Vaccination: Yes Review of Systems - Review of Systems Neurological/Psychological: Anxiety -: Yes All other systems reviewed and negative Physical Exam - Vital signs Vitals: Temp Pulse Resp BP Pulse Ox 98 F 98 30 H 148/90 H 100 08/16/18 18:41 08/16/18 18:41 08/16/18 18:41 08/16/18 18:41 08/16/18 18:41 - Notes Notes: PHYSICAL EXAMINATION: GENERAL: Well-appearing, well-nourished and in no acute distress. HEAD: Atraumatic, normocephalic. EYES: Pupils equal round and reactive to light, extraocular movements intact, sclera anicteric, conjunctiva are normal. ENT: Nares patent, oropharynx clear without exudates. Moist mucous membranes. NECK: Normal range of motion, supple without lymphadenopathy LUNGS: Breath sounds clear to auscultation bilaterally and equal. No wheezes rales or rhonchi. HEART: Regular rate and rhythm without murmurs ABDOMEN: Soft, nontender, nondistended abdomen. No guarding, no rebound. No masses appreciated. Musculoskeletal: Normal range of motion, no pitting or edema. No cyanosis. NEUROLOGICAL: Cranial nerves grossly intact. Normal speech, normal gait. Normal sensory, motor exams PSYCH: Normal mood, normal affect. SKIN: Warm, Dry, normal turgor, no rashes or lesions noted. Course - Re-evaluation Re-evalutation: 08/16/18 19:38 On initial evaluation patient is alert, oriented, and cooperative. Patient reports that he thinks he had a panic attack prior to arrival. He states that he was shaking. He states that all of his symptoms have resolved. He said this has happened before. Patient is unsure of what medications he takes but states he has not had his nighttime medications yet. Patient's physical examination is unremarkable. Patient has no acute complaints at this time. 08/16/18 19:47 There is a note on the chart that states that a [facility] case workers on the way for this patient. I did place a call to them to verify this is from my standpoint patient can be discharged at this time as patient is not acutely suicidal or homicidal and has no active symptoms at this time. Awaiting callback. Nourishment provided to patient. 08/16/18 20:58 Spoke with [facility] who indicates they are not coming to the emergency department. Patient will be discharged home. We did try calling the facility that he came from to ask if they can come pick him up. They indicated that they have no transportation available. Patient will be transported back via friendly wheelchair van. 08/16/18 22:00 Two nursing assistants from [facility] came to take patient home. Patient discharged in stable condition. - Vital Signs Vital signs: Temp Pulse Resp BP Pulse Ox 98.3 F 72 12 120/93 H 99 08/16/18 21:50 08/16/18 21:50 08/16/18 21:50 08/16/18 21:50 08/16/18 21:50 Discharge - Discharge Clinical Impression: Anxiety Condition: Stable Disposition: HOME, SELF-CARE Instructions: Anxiety ([facility]) Additional Instructions: Anxiety The physician feels that some of your health problems are being caused by anxiety. Anxiety affects your health in many ways. Anxiety alone can cause palpitations, sweats, chest pains, abdominal pains, shortness of breath, and headaches. It contributes to ulcer disease, high blood pressure, irritable bowel syndrome, and has been shown to cause flare-ups of many other diseases. Anxiety is not a simple disorder to treat. If the anxiety is due to recent life stresses, you may simply need time to "work through" the changes. If the anxiety is due to an underlying unhappiness with yourself or due to psychiatric disturbance, professional help will be needed. Your physician can refer you for further help if needed. Anti-anxiety medication is occasionally given if the stress is acute or if you are having trouble sleeping. Chronic or frequent use of these medications is not a good idea because the body becomes reliant on it, preventing you from dealing with life's normal stresses. Please continue taking all routine medicines as prescribed. Follow-up with your primary care provider. Referrals: AVANI HUTTON MD [NO LOCAL MD] - Follow up as needed
[2018-08-16 21:53] VITALS: BP 120/93
== END 2018-08-16 21:53 | disposition home or self-care (01) ==
LOC: ER 18:32
DX: F41.9 Anxiety disorder, unspecified (principal); F17.200 Nicotine dependence, unspecified, uncomplicated; Z79.899 Other long term (current) drug therapy; Z87.820 Personal history of traumatic brain injury
CPT/HCPCS: 99283; J3490

== ENCOUNTER → 2019-01-06 | Outpatient (CLI) | payer MEDICAID ==
[2019-01-06 10:44] LABS: HEMATOCRIT 46.9 % (37.9-51.0); HEMOGLOBIN 16.4 g/dL (13.5-17.0); MEAN CORPUSCULAR HEMOGLOBIN 32.2 pg (27.0-33.4); MEAN CORPUSCULAR HGB CONC 34.9 g/dL (32.0-36.0); MEAN CORPUSCULAR VOLUME 92 fl (80-97); PLATELET COUNT 498 10^3/uL (150-450); RED BLOOD COUNT 5.08 10^6/uL (4.35-5.55); RED CELL DISTRIBUTION WIDTH 14.4 % (11.5-14.0); WHITE BLOOD COUNT 9.8 10^3/uL (4.0-10.5)
[2019-01-06 11:07] LABS: ALANINE AMINOTRANSFERASE 21 U/L (21-72); ALBUMIN 4.4 g/dL (3.5-5.0); ALKALINE PHOSPHATASE 55 U/L (38-126); ANION GAP 9 (5-19); ASPARTATE AMINO TRANSFERASE 21 U/L (17-59); BILIRUBIN,DIRECT 0.3 mg/dL (0.0-0.4); BILIRUBIN,TOTAL 0.6 mg/dL (0.2-1.3); BLOOD UREA NITROGEN 11 mg/dL (7-20); CALCIUM 10.2 mg/dL (8.4-10.2); CARBON DIOXIDE 25 mmol/L (22-30); CHLORIDE 105 mmol/L (98-107); CHOLESTEROL 220.08 mg/dL (0-200); GLUCOSE 75 mg/dL (75-110); POTASSIUM 4.7 mmol/L (3.6-5.0); SODIUM 139.2 mmol/L (137-145); TOTAL PROTEIN 7.8 g/dL (6.3-8.2); TRIGLYCERIDES 109 mg/dL (<150)
[2019-01-06 11:18] LABS: DIRECT LDL 143 mg/dL (<100)
== END ==
LOC: OD 09:40
PROVIDERS: ATTEND Family Medicine
DX: Z12.5 Encounter for screening for malignant neoplasm of prostate (principal); I63.9 Cerebral infarction, unspecified
CPT/HCPCS: 36415; 80053; 80061; 84153; 84443; 85027

== ENCOUNTER 2019-02-22 08:56 | Emergency (ER) | payer MEDICAID ==
[2019-02-22] MEDS ORDERED: IBUPROFEN 800 MG TABLET PO ONE (09:34)
[2019-02-22] MEDS ORDERED: HYDROCODONE/ACETAMINOPHEN 5-325 MG TABLET PO ONE (10:35)
--- NOTE | 2019-02-22 10:39 | RADIOLOGY REPORT (SQ) ---
EXAM DESCRIPTION: HAND LEFT 3 VIEWS COMPLETED DATE/TIME: 02/22/2019 10:02 am REASON FOR STUDY: punched wall, L 5th MC injury COMPARISON: None. EXAM PARAMETERS: NUMBER OF VIEWS: Three views. TECHNIQUE: AP, lateral and oblique radiographic images acquired of the left hand. LIMITATIONS: None. FINDINGS: MINERALIZATION: Normal. BONES: There is an oblique, angulated fracture of the mid left 5th metacarpal with approximately 45 p almar angulation of the distal fragment. JOINTS: No effusions. SOFT TISSUES: No soft tissue swelling. No foreign body. OTHER: No other significant finding. IMPRESSION: There is an oblique, angulated fracture of the mid left 5th metacarpal with approximatel y 45 palmar angulation of the distal fragment. TECHNICAL DOCUMENTATION: JOB ID: [id number] [employer]- All Rights Reserved Reading location - IP/workstation name: [email or web address]
[2019-02-22] MEDS ORDERED: LIDOCAINE 1% INJ (10 MG/ML) 10 ML MDV INJ ONE (10:41)
--- NOTE | 2019-02-22 11:42 | ER Document Report ---
HPI - HPI Patient complains to provider of: Left hand injury Time Seen by Provider: 02/22/19 09:25 Onset: This morning Onset/Duration: Sudden Quality of pain: Achy Pain Level: 5 Context: Patient punched a wall at home today injuring his left hand. Patient is left- hand dominant. Patient was swelling to the left hand. Patient is here from [place] with a caregiver. Patient is a younger of the state and he has a guardian screening representative with socially responsible investment adviser who makes his medical decisions. Associated Symptoms: Other - Left hand injury Exacerbated by: Movement Relieved by: Denies Similar symptoms previously: No Recently seen / treated by doctor: No - ROS ROS below otherwise negative: Yes Systems Reviewed and Negative: Yes All other systems reviewed and negative - GASTROINTESTINAL Gastrointestinal: DENIES: Nausea - MUSCULOSKELETAL Musculoskeletal: REPORTS: Extremity pain - left hand, Swelling - DERM Skin Color: Normal Skin Problems: None Past Medical History - General Information source: Patient, Legal Guardian, Outside Facility Records - Social History Smoking Status: Current Every Day Smoker Smoking Education Provided: Yes Frequency of alcohol use: None Drug Abuse: None Lives with: Other - [facility] Family History: None, Reviewed & Not Pertinent Patient has suicidal ideation: No Patient has homicidal ideation: No Neurological Medical History: Reports: Hx Cerebrovascular Accident, Hx Seizures Renal/ Medical History: Denies: Hx Peritoneal Dialysis Musculoskeletal Medical History: Reports Hx Musculoskeletal Deformity, Reports Hx Musculoskeletal Trauma Psychiatric Medical History: Reports: Hx Depression Traumatic Medical History: Reports: Hx Spleen Laceration/Rupture, Hx Traumatic Brain Injury - 2009 Past Surgical History: Reports: Hx Abdominal Surgery - bowel obstruction colon resection, Hx Orthopedic Surgery - Shoulder, arm, and jaw surgery - Immunizations Immunizations up to date: Yes Hx Diphtheria, Pertussis, Tetanus Vaccination: Yes Vertical Provider Document - CONSTITUTIONAL Agree With Documented VS: Yes Exam Limitations: Other - aphasia General Appearance: WD/WN, No Apparent Distress - INFECTION CONTROL TRAVEL OUTSIDE OF THE [place].S. IN LAST 30 DAYS: No - HEENT HEENT: Atraumatic, Normocephalic - NECK Neck: Normal Inspection - RESPIRATORY Respiratory: Breath Sounds Normal, No Respiratory Distress - CARDIOVASCULAR Cardiovascular: Regular Rate, Regular Rhythm Pulses: Normal: Radial - MUSCULOSKELETAL/EXTREMETIES Musculoskeletal/Extremeties: MAEW, Tender - Left hand tenderness over fifth metacarpal with 2+ edema, Edema, Eccymosis - NEURO Level of Consciousness: Awake, Alert, Appropriate Motor/Sensory: No Motor Deficit - DERM Integumentary: Warm, Dry, No Rash Course - Re-evaluation Re-evalutation: 02/22/19 10:35 pt placed in finger traps and given additional pain medication. Pt anticipating pain and is not relaxing hand within the finger traps. Pt is agreeable with hematoma block prior to reduction attempt 02/22/19 10:45 Hematoma block performed left hand, blood aspirated at fracture site and 2 ml of 1%lidocaine were instilled. Pt returned to finger traps 02/22/19 11:35 Dr. Carrera to bedside for examination for reduction attempt. Pt refusing any man ipulation of the extremity at this time. Care provider at bedside states pt is younger of the [facility] and medical decision making is per his social media specialist Mark Faria. 02/22/19 11:50 Mark Faria is not in the office today and will not be in the office till after the . Called the social service department again tried to leave a message with an Ifrah Dumont, who is back Alina Faria's delivery driver/supervisor, message left on phone. Call placed to our program services planner Bola Awad for assistance. Call placed orthopedics , Dr. Rosas who states that if we are unable to reduce the injury that hand can be immobilized in a splint and patient referred to the office for follow-up this week. 02/22/19 12:00 Spoke with Ydai Chauhan at the social service department who states she will look into discovering who can make patient's medical decisions as his guardian is currently on vacation. 02/22/19 12:15 Was able to reach Mark Faria, patient's guardian screening representative, who states that patient initially did have a pain medication addiction and ideally we should avoid this category medicines, but understands that he does have a painful condition that may require this. She does state that we have permission to attempt reduction technique of the injury despite patient not requesting that this be performed at this time. 02/22/19 12:35 Velvet Chauhan returned phone call stating that she did speak with her delivery driver/supervisor and states that we do have permission to attempt reduction technique, with use of some restraint if needed, and ideally should avoid sedation if at all possible. 02/22/19 13:10 Dr. Carrera updated regarding consent regarding reduction of injury. Dr. Carrera recommends keeping patient in finger traps at this time and she will return to attempt reduction 02/22/19 13:10 Dr. Carrera to bedside for reduction attempt. Gentle traction was applied per Dr. Carrera, swelling appears to be somewhat improved and appearance of injury appears somewhat improved. 02/22/19 13:40 Postreduction films reviewed per , discussed with Dr. Carrera under sedation with Dr. Rosas. Recommends immobilization at this time and outpatient follow-up with orthopedics for further management. - Vital Signs Vital signs: Temp Pulse Resp BP Pulse Ox 97.5 F 63 18 106/58 L 97 02/22/19 09:01 02/22/19 09:01 02/22/19 09:01 02/22/19 09:01 02/22/19 09:01 - Diagnostic Test Radiology reviewed: Image reviewed, Reports reviewed Discharge - Discharge Clinical Impression: Metacarpal bone fracture Qualifiers: Encounter type: initial encounter Metacarpal bone: fifth Fracture type: closed Metacarpal location: shaft Fracture alignment: displaced Laterality: left Quali fied Code(s): S62.327A - Displaced fracture of shaft of fifth metacarpal bone, left hand, initial encounter for closed fracture Condition: Stable Disposition: HOME, SELF-CARE Instructions: Fractured Fifth Metacarpal ([facility]), Ice & Elevation ([facility]), Temporary Splint ([facility]) Additional Instructions: Return immediately for any new or worsening symptoms Followup with your primary care provider, call tomorrow to make a followup appointment Follow-up with Dr. Rosas, Orthopedic surgeon, for further evaluation, call his office today to make a follow-up appointment for this week. Prescriptions: Acetaminophen with Codeine [Tylenol #3 Tablet] 1 each PO Q6HP PRN #12 tablet PRN Reason: Naproxen [Naprosyn 250 Nmg Tablet] 1 tab PO BID #14 tablet Forms: Smoking Cessation Education Referrals: AVANI HUTTON MD [Primary Care Provider] - Follow up as needed ZAHEER ROSAS MD [ACTIVE STAFF] - Follow up tomorrow
--- NOTE | 2019-02-22 13:48 | RADIOLOGY REPORT (SQ) ---
EXAM DESCRIPTION: HAND LEFT 3 VIEWS COMPLETED DATE/TIME: 02/22/2019 1:36 pm REASON FOR STUDY: post reduction COMPARISON: 02/22/2019 EXAM PARAMETERS: NUMBER OF VIEWS: Three views. TECHNIQUE: AP, lateral and oblique radiographic images acquired of the left hand. LIMITATIONS: None. FINDINGS: MINERALIZATION: Normal. BONES: Once again there is a fracture of the 5th metacarpal. There is dorsal angulation. The angula tion has not changed. JOINTS: No effusions. SOFT TISSUES: No soft tissue swelling. No foreign body. OTHER: No other significant finding. IMPRESSION: 5th metacarpal fracture. No change. TECHNICAL DOCUMENTATION: JOB ID: [id number] [employer]- All Rights Reserved Reading location - IP/workstation name: [email or web address]
--- NOTE | 2019-02-22 13:50 | ER Document Report ---
Doctor's Note Notes: 02/22/19 13:49 Patient seen in conjunction with the nurse practitioner, please see her note correlate with mine. In short this patient injured his left hand by punching a wall. He sustained a boxer's fracture. Traction was attempted to try and reduce fracture. Patient refused any significant manipulation of the joint. We did speak with patient's penitentiary guardians with the state. They did not believe that sedation was indicated to further reduce this. I spoke with the orthopedist sales administration manager who states that if the splint is placed she will followed up in the office, regardless of appropriate reduction. Patient's fracture felt more aligned after traction, but it was not significantly changed. Splint was placed. We will have him follow-up with Dr. Rosas.
[2019-02-22 14:00] VITALS: BP 99/69
== END 2019-02-22 14:21 | disposition home or self-care (01) ==
LOC: ER 08:56
DX: S62.327A Displaced fracture of shaft of fifth metacarpal bone, left hand, initial encounter for closed fracture (principal); W22.09XA Striking against other stationary object, initial encounter; F17.200 Nicotine dependence, unspecified, uncomplicated; Z86.73 Personal history of transient ischemic attack (TIA), and cerebral infarction without residual deficits
CPT/HCPCS: 99283; 73130; 26605; J3490 ×2

== ENCOUNTER 2019-03-01 10:45 | Day surgery (SDC) | payer MEDICAID ==
[~2019-03-01 10:45] MED LIST: CEFAZOLIN 2 GM/D5W RTU 2 GM/50 ML RTUPB IV PRN
[2019-03-01] MEDS ORDERED: BUPIVACAINE HCL 0.5 % INJ/PF 30 ML SDV ONE (10:57)
[2019-03-01] MEDS ORDERED: CEFAZOLIN 2 GM/D5W RTU 2 GM/50 ML RTUPB IV ONE (11:05)
[2019-03-01 12:04] LABS: ABSOLUTE BASOPHILS # (AUTO) 0.1 10^3/uL (0.0-0.2); ABSOLUTE EOSINOPHILS # (AUTO) 0.1 10^3/uL (0.0-0.6); ABSOLUTE LYMPHOCYTES (AUTO) 2.7 10^3/uL (0.5-4.7); ABSOLUTE MONOCYTES (AUTO) 0.7 10^3/uL (0.1-1.4); ABSOLUTE NEUT (AUTO) 6.3 10^3/uL (1.7-8.2); BASOPHILS % (AUTO) 0.7 % (0-2); EOSINOPHILS % (AUTO) 1.5 % (0-6); HEMOGLOBIN 15.9 g/dL (13.5-17.0); LYMPHOCYTES % (AUTO) 27.6 % (13-45); MEAN CORPUSCULAR HEMOGLOBIN 31.7 pg (27.0-33.4); MEAN CORPUSCULAR HGB CONC 34.6 g/dL (32.0-36.0); MEAN CORPUSCULAR VOLUME 92 fl (80-97); MONOCYTES % (AUTO) 7.1 % (3-13); PLATELET COUNT 427 10^3/uL (150-450); RED BLOOD COUNT 5.02 10^6/uL (4.35-5.55); RED CELL DISTRIBUTION WIDTH 14.4 % (11.5-14.0); SEGMENTED NEUTROPHILS % (AUTO) 63.1 % (42-78); TOTAL CELLS COUNTED % (AUTO) 100 %; WHITE BLOOD COUNT 9.9 10^3/uL (4.0-10.5)
[2019-03-01 12:22] LABS: ANION GAP 11 (5-19); BLOOD UREA NITROGEN 15 mg/dL (7-20); CALCIUM 9.6 mg/dL (8.4-10.2); CARBON DIOXIDE 24 mmol/L (22-30); CHLORIDE 105 mmol/L (98-107); GLUCOSE 80 mg/dL (75-110); POTASSIUM 4.7 mmol/L (3.6-5.0); SODIUM 140.4 mmol/L (137-145)
[2019-03-01] MEDS ORDERED: ONDANSETRON HCL INJ/PF 4 MG/2 ML SDV ONE (14:06)
[2019-03-01] MEDS ORDERED: MIDAZOLAM 2 MG/2 ML INJ ONE (14:06)
[2019-03-01] MEDS ORDERED: LIDOCAINE 2% INJ-PF (20 MG/ML) 10 ML AMPUL ONE (14:06)
[2019-03-01] MEDS ORDERED: FENTANYL CITRATE INJ/PF 100 MCG/2 ML AMPUL ONE (14:06)
[2019-03-01] MEDS ORDERED: HYDROMORPHONE HCL INJ/PF 2 MG/ML AMPULE ONE (14:07)
[2019-03-01] MEDS ORDERED: PROPOFOL INJ 200 MG/20 ML VIAL IV ONE (14:07)
[2019-03-01] MEDS ORDERED: EPHEDRINE SULFATE INJ 50 MG/1 ML AMPULE ONE (14:52)
[2019-03-01] MEDS ORDERED: PROMETHAZINE HCL INJ 25 MG/1 ML VIAL IV PRN ×2 (15:10)
[2019-03-01] MEDS ORDERED: MEPERIDINE HCL/PF INJ 25 MG/1 ML DISP.SYRIN IV PRN (15:10)
[2019-03-01] MEDS ORDERED: ONDANSETRON HCL INJ/PF 4 MG/2 ML SDV IV PRN ×2 (15:10→15:12)
[2019-03-01] MEDS ORDERED: DIPHENHYDRAMINE HCL 50 MG/ML VIAL IV PRN (15:10)
[2019-03-01] MEDS ORDERED: FENTANYL CITRATE INJ/PF 100 MCG/2 ML AMPUL IV PRN ×3 (15:10)
[2019-03-01] MEDS ORDERED: OXYCODONE-ACETAMINOPHEN 5-325 MG TABLET PO PRN ×2 (15:10)
[2019-03-01] MEDS ORDERED: MORPHINE SULFATE 10 MG/ML INJ IV PRN ×2 (15:10→15:12)
[2019-03-01] MEDS ORDERED: HYDROCODONE/ACETAMINOPHEN 5-325 MG TABLET PO PRN (15:12)
--- NOTE | 2019-03-01 15:13 | Discharge Summary ---
Discharge Summary (SDC) - Discharge Final Diagnosis: Left 5th Metacarpal Neck Fracture Date of Surgery: 03/01/19 Discharge Date: 03/01/19 Condition: Good Treatment or Instructions: Schedule Follow Up w/ Dr. Thanh Ruiz @ [facility] to be seen in 10-14 days or as scheduled [place]: [place]: [place]: Ice and elevate Keep splint clean/dry/intact, do not remove. If your fingers become numb please unwrap the Kan wrap but leave the splint in place, if the sensation does not return within 30 minutes please return to the emergency department. May begin finger range of motion attempting to make full fist. Please use ibuprofen (Motrin or Advil) 600-800 mg every 8 hours as needed for pain or fever DO NOT TAKE w/ TORADOL may use once TORADOL complete. You may also use acetaminophen (Tylenol) 1000 mg every 4-6 hours as needed for pain or fever. Please be aware that many medications contain acetaminophen, do not exceed a total of 1000 mg of acetaminophen every 6 hours. If ibuprofen and acetaminophen are not sufficient for your pain you may take the Percocet/Buffalo. Please be aware that the Percocet/Buffalo does contain Tylenol. Stool softener of choice when on pain medication. USE OF [id number] IBUPROFEN: Ibuprofen (Advil, Nuprin, Medipren, Motrin IB) is a medication for fever and pain control. In addition, it has anti- inflammatory effects which may be beneficial, especially in the treatment of injuries. It's best to take ibuprofen with food. Persons with ulcer disease or allergy to aspirin should notify their physician of this before taking ibuprofen. Ibuprofen can be given every four to six hours, for a total of four doses daily. Age Pain or fever dose Antiinflammatory dose 6-8 yr 200 mg (1 tab) 200 mg (1 tab) 9-11 yr 200 mg (1 tab) 200-400 mg (1-2 tab) 11-14 yr 200-400 mg (1-2 tab) 400 mg (2 tab) 15-adult 400 mg (2 tab) 600 mg (3 tab) ORAL NARCOTIC MEDICATION: You have been given a prescription for pain control. This medication is a narcotic. It's best taken with food, as nausea can result if taken on an empty stomach. Don't operate machinery or drive within six hours of taking this medication. Do not combine this medicine with alcohol, or with any medication which can cause sedation (such as cold tablets or sleeping pills) unless you get permission from the physician. Narcotics tend to cause constipation. If possible, drink plenty of fluids and eat a diet high in fiber and fruits. Please be aware that prescription narcotics also have the potential for abuse. People become addicted to these medications because of the general sense of wellbeing that they induce. This feeling along with a significant reduction in tension, anxiety, and aggression provides a stimulating seductive quality to these drugs. Once your pain is under control, we encourage you to discard your unused narcotics. Prescriptions: Hydrocodone/Acetaminophen [Buffalo 5-325 mg Tablet] 1 tab PO Q6 PRN #25 tablet PRN Reason: Referrals: AVANI HUTTON MD [Primary Care Provider] - Discharge Diet: As Tolerated Respiratory Treatments at Home: Deep Breathing/Coughing Discharge Activity: No Lifting Over 10 Pounds, No Lifting/Push/Pulling Report the Following to Your Physician Immediately: Fever over 101 Degrees, Unusual Bleeding, Redness, Swelling, Warmth, Increased Soreness
--- NOTE | 2019-03-01 15:13 | Operative Report ---
Operative Report DATE OF SURGERY: 03/01/19 PREOPERATIVE DIAGNOSIS: Right fifth metacarpal neck fracture POSTOPERATIVE DIAGNOSIS: Same OPERATION: ORIF right fifth metacarpal neck SURGEON: MAIDA BACA ANESTHESIA: GA COMPLICATIONS: None ESTIMATED BLOOD LOSS: Minimal PROCEDURE: Indication for above procedure: 43-year-old male who sustained a fracture of his fifth metacarpal neck when punching a immobile object. Patient had x-rays at the emergency room confirming diagnosis. Upon follow-up with me we discussed treatment options including o perative versus nonoperative intervention risks and benefits were explained patient verbalized understanding consented for surgical procedure. Procedure In Detail: Patient was seen and evaluated in the preoperative holding area. The Right upper extremity was initialized and marked. Patient received 2g of Ancef IV for bacterial prophylaxis. Patient was taken back to the operative room where tr ansferred to the operative table and placed under general anesthesia. Once they were adequately anesthetized a nonsterile tourniquet was placed on the upper extremity. A surgical team debriefing was performed ensuring all instrumentation was available, the surgical procedure was discussed with possible concerns reviewed. The upper extremity was prepped with chlorhexidine and alcohol and draped in a sterile fashion. A timeout was done identifying correct patient, procedure and extremity everyone in attendance agree with this and verbalized no concerns. The extremity was exsanguinated the tourniquet was inflated to 250 mmHg. Longitudinal skin incision was made along the MCP joint dorsally. Blunt dissection was performed. Interval between the EDC-5 and EDM was established to expose the MCP joint capsule. Small capsulotomy was then made to visualize the fifth metacarpal head.. The fifth metacarpal neck fracture was then reduced and a K wire was placed on the dorsal third of the articular surface of the fifth metacarpal to obtain provisional fixation. C-arm fluoroscopy was obtained confirming anglican of metacarpal height, length without residual angulation or displacement at that point decision was made to place a 3.0 x 40 mm headless compression screw. Prior to placing the screw the entry point was countersunk. One screw was engaged obtained adequate fixation within the intramedullary canal with maintained alignment on radiographs. Screw was countersunk below the articular surface to avoid postoperative irritation and impingement. Wound was copiously irrigated with normal saline. Extensor mechanism was closed with interrupted 3-0 Vicryl suture. Skin was closed with subcuticular 4-0 Monocryl reinforced with Dermabond Steri-Strips. Patient was placed in a volar splint leaving the PIP joints free for range of motion but immobilized the MP joints. Sponge counts, instrument counts, needle counts were correct. Patient was then awoken from anesthesia. Transferred from the operating room table to the operating room stretcher. There was no intraoperative complications patient tolerated procedure well stable to PACU. Postoperative plan Patient follow-up the office in 2 weeks at which point we will obtain out of cast radiographs and transition to removable boxers splint
[2019-03-01] MEDS: FENTANYL CITRATE INJ/PF 100 MCG/2 ML AMPUL ONE ×2 (15:44→15:49)
[2019-03-01] MEDS ORDERED: KETOROLAC TROMETHAMINE INJ/PF 30 MG/1 ML SDV ONE (15:59)
[2019-03-01] MEDS ORDERED: ACETAMINOPHEN 1,000 MG/100 ML RTUPB IV ONE (15:59)
--- NOTE | 2019-03-01 15:59 | RADIOLOGY REPORT (SQ) ---
EXAM DESCRIPTION: NO CHG FLUORO; FINGER LEFT COMPLETED DATE/TIME: 03/01/2019 3:32 pm REASON FOR STUDY: LT 5TH METACARPAL ORIF ASST W/ FLUORO IN OR COMPARISON: None. FLUOROSCOPY TIME: 14 seconds For Images saved to PACS LIMITATIONS: None. PROCEDURE: ORIF 5th metacarpal fracture. FINDINGS: Images from fluoro document placement of a long cannulated screw in the 5th metacarpal. IMPRESSION: ORIF 5th metacarpal fracture. Refer to operative note for further information. COMMENT: PQRS 6045F: Fluoroscopy time of the procedure is documented in the report. TECHNICAL DOCUMENTATION: JOB ID: [id number] [employer]- All Rights Reserved Reading location - IP/workstation name: [email or web address]
--- NOTE | 2019-03-01 15:59 | RADIOLOGY REPORT (SQ) ---
EXAM DESCRIPTION: NO CHG FLUORO; FINGER LEFT COMPLETED DATE/TIME: 03/01/2019 3:32 pm REASON FOR STUDY: LT 5TH METACARPAL ORIF ASST W/ FLUORO IN OR COMPARISON: None. FLUOROSCOPY TIME: 14 seconds For Images saved to PACS LIMITATIONS: None. PROCEDURE: ORIF 5th metacarpal fracture. FINDINGS: Images from fluoro document placement of a long cannulated screw in the 5th metacarpal. IMPRESSION: ORIF 5th metacarpal fracture. Refer to operative note for further information. COMMENT: PQRS 6045F: Fluoroscopy time of the procedure is documented in the report. TECHNICAL DOCUMENTATION: JOB ID: [id number] [employer]- All Rights Reserved Reading location - IP/workstation name: [email or web address]
[2019-03-01] MEDS: MORPHINE SULFATE 10 MG/ML INJ ONE ×3 (16:00→16:10)
[2019-03-01] MEDS ORDERED: HYDROCODONE/ACETAMINOPHEN 5-325 MG TABLET ONE (16:26)
[2019-03-01] MEDS ORDERED: OXYCODONE-ACETAMINOPHEN 5-325 MG TABLET ONE (16:32)
[2019-03-01 18:30] VITALS: BP 109/75
== END 2019-03-01 18:05 | disposition home or self-care (01) ==
LOC: OROUT 10:45
PROVIDERS: ATTEND Orthopaedic Surgery
DX: S62.337A Displaced fracture of neck of fifth metacarpal bone, left hand, initial encounter for closed fracture (principal); W22.09XA Striking against other stationary object, initial encounter; M79.642 Pain in left hand; F17.210 Nicotine dependence, cigarettes, uncomplicated; Z86.73 Personal history of transient ischemic attack (TIA), and cerebral infarction without residual deficits; Z79.82 Long term (current) use of aspirin; Z79.1 Long term (current) use of non-steroidal anti-inflammatories (NSAID); Z79.891 Long term (current) use of opiate analgesic; Z79.899 Other long term (current) drug therapy
CPT/HCPCS: 36415; 85025; 80048; 73140; 01830; 26615; C1713 ×3; J2250; J3490 ×3; J3010; J1885; J2270; J2405; J2704; J0690; J0131; J1170

== ENCOUNTER 2019-09-11 10:38 | Emergency (ER) | payer MEDICAID ==
--- NOTE | 2019-09-11 14:55 | ER Document Report ---
HPI - HPI Patient complains to provider of: Right arm pain Time Seen by Provider: 09/11/19 14:08 Onset: This morning Onset/Duration: Gone Quality of pain: No pain Pain Level: Denies Context: Patient states that he was sleeping on his right lateral side. Patient states when he woke up he had right shoulder pain and right leg pain. Patient states similar he got up the pain persisted for about 30 minutes and then resolved. Patient was advised to come here for further evaluation. Patient presently denies any complaints symptoms and does not want to have any testing performed as he feels fine at this time. Patient denies any symptoms or complaints. Associated Symptoms: None Exacerbated by: Denies Relieved by: Denies Similar symptoms previously: No Recently seen / treated by doctor: No - ROS ROS below otherwise negative: Yes Systems Reviewed and Negative: Yes All other systems reviewed and negative - CONSTITUTIONAL Constitutional: DENIES: Fever - NEURO Neurology: DENIES: Weakness - CARDIOVASCULAR Cardiovascular: DENIES: Chest pain - GASTROINTESTINAL Gastrointestinal: DENIES: Nausea, Patient vomiting - MUSCULOSKELETAL Musculoskeletal: DENIES: Extremity pain, Back Pain, Neck Pain, Swelling - DERM Skin Color: Normal Skin Problems: None Past Medical History - General Information source: Patient - Social History Smoking Status: Former Smoker Chew tobacco use (# tins/day): No Frequency of alcohol use: None Drug Abuse: None Family History: None, Reviewed & Not Pertinent Patient has suicidal ideation: No Patient has homicidal ideation: No - Past Medical History Cardiac Medical History: Denies: Hx Heart Attack Pulmonary Medical History: Denies: Hx Asthma, Hx Bronchitis, Hx COPD, Hx Pneumonia Neurological Medical History: Reports: Hx Cerebrovascular Accident - 2010 accident at work left side weakness 2018 stroke, Hx Seizures Renal/ Medical History: Denies: Hx Peritoneal Dialysis Musculoskeletal Medical History: Denies Hx Arthritis, Reports Hx Musculoskeletal Deformity, Reports Hx Musculoskeletal Trauma Psychiatric Medical History: Reports: Hx Depression Traumatic Medical History: Reports: Hx Spleen Laceration/Rupture, Hx Traumatic Brain Injury - 2009 Past Surgical History: Reports: Hx Abdominal Surgery - bowel obstruction colon resection, Hx Orthopedic Surgery - Shoulder, arm, and jaw surgery - Immunizations Immunizations up to date: Yes Hx Diphtheria, Pertussis, Tetanus Vaccination: Yes Vertical Provider Document - CONSTITUTIONAL Agree With Documented VS: Yes Exam Limitations: No Limitations General Appearance: WD/WN, No Apparent Distress - INFECTION CONTROL TRAVEL OUTSIDE OF THE [place] IN LAST 30 DAYS: No - HEENT HEENT: Atraumatic, Normal ENT Exam, Normocephalic, PERRLA - NECK Neck: Normal Inspection, Supple. negative: Lymphadenopathy-Left, Lymphadenopathy-Right - RESPIRATORY Respiratory: Breath Sounds Normal, No Respiratory Distress - CARDIOVASCULAR Cardiovascular: Regular Rate, Regular Rhythm Pulses: Normal: Radial - GI/ABDOMEN Gastrointestinal: Abdomen Soft, Abdomen Non-Tender, No Organomegaly, Normal Bowel Sounds - BACK Back: Normal Inspection. negative: CVA Tenderness-Right, CVA Tenderness-Left - MUSCULOSKELETAL/EXTREMETIES Musculoskeletal/Extremeties: MAEW, FROM, Non-Tender - NEURO Level of Consciousness: Awake, Alert, Appropriate Motor/Sensory: No Motor Deficit Notes: Dysarthria - DERM Integumentary: Warm, Dry, No Rash Course - Re-evaluation Re-evalutation: 09/11/19 14:56 Patient states that he was sleeping on his right side and woke up with right arm and right leg pain. Patient states he only had pain for about 30 minutes and then the pain resolved. Patient presently denies any complaints or symptoms at this time. Patient states that he does not want to have any tests done as his symptoms have resolved and he feels much better. Declines needing any medications. 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 Patient states that he does not have any new deficits. - Vital Signs Vital signs: Temp Pulse Resp BP Pulse Ox 97.7 F 59 L 16 98/64 L 99 09/11/19 10:38 09/11/19 10:38 09/11/19 10:38 09/11/19 10:38 09/11/19 10:38 Discharge - Discharge Clinical Impression: resolved right arm pain, resolved leg pain Condition: Stable Disposition: HOME, SELF-CARE Additional Instructions: Return immediately for any new or worsening symptoms Followup with your primary care provider, call tomorrow to make a followup appointment Referrals: AVANI HUTTON MD [Primary Care Provider] - Follow up tomorrow
[2019-09-11 15:26] VITALS: BP 109/74
== END 2019-09-11 16:06 | disposition home or self-care (01) ==
LOC: ER 10:38
DX: M79.601 Pain in right arm (principal); M79.604 Pain in right leg
CPT/HCPCS: 99283

== ENCOUNTER → 2020-03-02 | Outpatient (CLI) | payer MEDICAID ==
[2020-03-02 10:19] LABS: HEMATOCRIT 47.2 % (37.9-51.0); HEMOGLOBIN 16.9 g/dL (13.5-17.0); MEAN CORPUSCULAR HEMOGLOBIN 32.7 pg (27.0-33.4); MEAN CORPUSCULAR HGB CONC 35.9 g/dL (32.0-36.0); MEAN CORPUSCULAR VOLUME 91 fl (80-97); PLATELET COUNT 405 10^3/uL (150-450); RED BLOOD COUNT 5.17 10^6/uL (4.35-5.55); RED CELL DISTRIBUTION WIDTH 13.8 % (11.5-14.0); WHITE BLOOD COUNT 10.6 10^3/uL (4.0-10.5)
[2020-03-02 10:41] LABS: ALBUMIN 4.8 g/dL (3.5-5.0); ALKALINE PHOSPHATASE 64 U/L (38-126); ANION GAP 9 (5-19); ASPARTATE AMINO TRANSFERASE 20 U/L (17-59); BILIRUBIN,TOTAL 0.7 mg/dL (0.2-1.3); BLOOD UREA NITROGEN 12 mg/dL (7-20); CARBON DIOXIDE 27 mmol/L (22-30); CHLORIDE 102 mmol/L (98-107); CHOLESTEROL 209.63 mg/dL (0-200); GLUCOSE 84 mg/dL (75-110); POTASSIUM 4.6 mmol/L (3.6-5.0); TOTAL PROTEIN 8.1 g/dL (6.3-8.2); TRIGLYCERIDES 125 mg/dL (<150)
[2020-03-02 10:51] LABS: DIRECT LDL 148 mg/dL (<100)
== END ==
LOC: OD 08:36
PROVIDERS: ATTEND Family Medicine
DX: Z12.5 Encounter for screening for malignant neoplasm of prostate (principal); F01.50 Vascular dementia, unspecified severity, without behavioral disturbance, psychotic disturbance, mood disturbance, and anxiety; I63.9 Cerebral infarction, unspecified
CPT/HCPCS: 36415; 80053; 80061; 84153; 84443; 85027

== ENCOUNTER → 2020-05-08 | Outpatient (CLI) | payer MEDICAID | LOC: OD 09:50 | PROVIDERS: ATTEND Family Medicine | DX: R56.9 Unspecified convulsions (principal) | CPT/HCPCS: 36415; 80177 ==

== ENCOUNTER 2020-08-30 10:24 | Emergency (ER) | payer MEDICAID ==
[2020-08-30 10:50] LABS: ABSOLUTE BASOPHILS # (AUTO) 0.1 10^3/uL (0.0-0.2); ABSOLUTE EOSINOPHILS # (AUTO) 0.1 10^3/uL (0.0-0.6); ABSOLUTE LYMPHOCYTES (AUTO) 1.6 10^3/uL (0.5-4.7); ABSOLUTE MONOCYTES (AUTO) 0.8 10^3/uL (0.1-1.4); ABSOLUTE NEUT (AUTO) 12.1 10^3/uL (1.7-8.2); BASOPHILS % (AUTO) 0.7 % (0-2); EOSINOPHILS % (AUTO) 0.8 % (0-6); HEMATOCRIT 54.1 % (37.9-51.0); HEMOGLOBIN 17.9 g/dL (13.5-17.0); LYMPHOCYTES % (AUTO) 10.9 % (13-45); MEAN CORPUSCULAR HGB CONC 33.1 g/dL (32.0-36.0); MEAN CORPUSCULAR VOLUME 94 fl (80-97); MONOCYTES % (AUTO) 5.2 % (3-13); PLATELET COUNT 472 10^3/uL (150-450); RED BLOOD COUNT 5.76 10^6/uL (4.35-5.55); RED CELL DISTRIBUTION WIDTH 14.4 % (11.5-14.0); SEGMENTED NEUTROPHILS % (AUTO) 82.4 % (42-78); TOTAL CELLS COUNTED % (AUTO) 100 %; WHITE BLOOD COUNT 14.7 10^3/uL (4.0-10.5)
[2020-08-30] MEDS ORDERED: LEVETIRACETAM 1000 MG/NACL-ISO 1,000 MG/100 ML RTUPB IV ONE (10:53)
--- NOTE | 2020-08-30 11:01 | ER Document Report ---
ED General - General Chief Complaint: Probable Seizure Stated Complaint: POSSIBLE SEIZURE Time Seen by Provider: 08/30/20 10:37 Primary Care Provider: AVANI HUTTON MD [Primary Care Provider] - Follow up as needed TRAVEL OUTSIDE OF THE [place] IN LAST 30 DAYS: No - HPI Notes: Patient is a 44-year-old male with a history of TBI and seizure disorder who presents to the emergency department for evaluation after a seizure. Evidently he was petting some kittens and fell, had a seizure. He does have a history of seizures. The patient admits to me that he has not taken his Keppra in the last 3 weeks. I asked him why, he states "I guess I am just dumb." He has a list of medications, he states he is not really sure why they are on there. He states that the only medication he does normally take is his Keppra. At this point he denies any pain. He did not bite his tongue. He does admit to being incontinent of stool and urine when he seized. - Related Data Allergies/Adverse Reactions: No Known Allergies Allergy (Verified 03/01/19 11:11) Home Medications: keppra. aspirin. melatonin. risperidone. trazadone Past Medical History - General Information source: Patient - Social History Smoking Status: Current Every Day Smoker Chew tobacco use (# tins/day): No Frequency of alcohol use: None - Former alcohol dependence Drug Abuse: None Family History: None, Reviewed & Not Pertinent Patient has homicidal ideation: No - Past Medical History Cardiac Medical History: Denies: Hx Heart Attack Pulmonary Medical History: Denies: Hx Asthma, Hx Bronchitis, Hx COPD, Hx Pneumonia Neurological Medical History: Reports: Hx Cerebrovascular Accident - 2010 accident at work left side weakness 2018 stroke, Hx Seizures Renal/ Medical History: Denies: Hx Peritoneal Dialysis Musculoskeletal Medical History: Denies Hx Arthritis, Reports Hx Musculoskeletal Deformity, Reports Hx Musculoskeletal Trauma Psychiatric Medical History: Reports: Hx Depression Traumatic Medical History: Reports: Hx Spleen Laceration/Rupture, Hx Traumatic Brain Injury - 2009 Past Surgical History: Reports: Hx Abdominal Surgery - bowel obstruction colon resection, Hx Orthopedic Surgery - Shoulder, arm, and jaw surgery - Immunizations Immunizations up to date: Yes Hx Diphtheria, Pertussis, Tetanus Vaccination: Yes Review of Systems - Review of Systems Constitutional: No symptoms reported EENT: No symptoms reported Cardiovascular: No symptoms reported Respiratory: No symptoms reported Gastrointestinal: No symptoms reported Genitourinary: No symptoms reported Musculoskeletal: No symptoms reported Skin: No symptoms reported Neurological/Psychological: See HPI Physical Exam - Vital signs Vitals: Temp Resp Pulse Ox 98.0 F 18 96 08/30/20 10:26 12 10:26 08/30/20 10:26 - Notes Notes: Vital signs reviewed, please refer to chart. Head is normocephalic. Small, superficial abrasion noted on the left parietal/occipital scalp without significant laceration or foreign body. Pupils equal round, reactive to light. Neck is supple without meningismus. Heart is regular rate and rhythm. Lungs are clear to auscultation bilaterally. Abdomen is soft, nontender, normoactive bowel sounds throughout. Extremities without cyanosis, clubbing. Posterior calves are nontender. Peripheral pulses are equal. Skin is warm and dry. Patient is awake, alert, disoriented to place and time. I am unsure how different this is from his baseline. Cranial nerves II - XII are grossly intact without focal neurological deficits. Minimal diminished strength in the left upper and lower extremity as compared to the right. Sensation is intact. Reflexes symmetrical. Intact [id number], rapid alternating movements, [id number]. Course - Re-evaluation Re-evalutation: 08/30/20 11:01 Patient is a 44-year-old male who presents the emergency department for evaluation of a seizure. This is not surprising in light of the fact that he has a known seizure disorder and has not been taking his Keppra. He will be loaded with IV Keppra here. Lab work is obtained. He is currently stable, we will continue to monitor. 08/30/20 11:44 Patient remained stable. No complaints. He was borderline hypoglycemic so I did bring up some juice and crackers. He states he always has this issue. His hemoglobin was 17.9. He states he never drinks enough, I do suspect some mild dehydration. We will give him a liter of fluids. 08/30/20 12:59 Patient is remained stable. His tox screen is unremarkable. Electrolytes unremarkable. The importance of taking his Keppra as directed was stressed to the patient and he voiced understanding. He is to follow-up with primary care neurology, return to the ED with worsening or new concerning symptoms of any sor t. 08/30/20 13:04 I verified with patient, he does not fact have Keppra remaining. - Vital Signs Vital signs: Temp Pulse Resp BP Pulse Ox 98.0 F 29 H 104/84 96 08/30/20 10:26 08/30/20 10:27 08/30/20 10:27 08/30/20 10:27 - Laboratory Result Diagrams: 08/30/20 10:40 08/30/20 10:40 Laboratory results interpreted by me: 08/30/20 08/30/20 08/30/20 10:40 10:40 11:59 WBC 14.7 H RBC 5.76 H Hgb 17.9 H Hct 54.1 H RDW 14.4 H Plt Count 472 H Lymph % (Auto) 10.9 L Absolute Neuts (auto) 12.1 H Seg Neutrophils % 82.4 H Glucose 72 L Calcium 10.5 H Total Protein 9.6 H Albumin 5.5 H Urine Protein 30 H Urine Ketones TRACE H - EKG Interpretation by Me Additional EKG results interpreted by me: 08/30/20 11:02 Sinus mechanism with a rate of 81 bpm. Normal axis and intervals. No acute ST changes concerning for ischemia or infarction. Discharge - Discharge Clinical Impression: Seizure Condition: Stable Disposition: HOME-ASSISTED LIVING Instructions: Seizure, Known Epileptic ([facility]) Additional Instructions: Please go back to taking your Keppra as previously prescribed. Follow-up with primary care and neurology in the next 1 to 2 weeks. Return to the emergency department worsening or new concerning symptoms of any sort. Referrals: AVANI HUTTON MD [Primary Care Provider] - Follow up as needed
[2020-08-30 11:25] LABS: ALBUMIN 5.5 g/dL (3.5-5.0); ALKALINE PHOSPHATASE 75 U/L (38-126); ANION GAP 14 (5-19); ASPARTATE AMINO TRANSFERASE 26 U/L (17-59); BILIRUBIN,DIRECT 0.2 mg/dL (0.0-0.4); BILIRUBIN,TOTAL 0.6 mg/dL (0.2-1.3); BLOOD UREA NITROGEN 14 mg/dL (7-20); CALCIUM 10.5 mg/dL (8.4-10.2); CARBON DIOXIDE 23 mmol/L (22-30); CHLORIDE 104 mmol/L (98-107); GLUCOSE 72 mg/dL (75-110); TOTAL PROTEIN 9.6 g/dL (6.3-8.2)
[2020-08-30 11:29] LABS: ALCOHOL < 10 mg/dL (NONE DETECTED)
[2020-08-30] MEDS ORDERED: NORMAL SALINE 1000 ML 1,000 ML IV ONE (11:42)
[2020-08-30 12:23] LABS: APPEARANCE,URINE CLEAR; BILIRUBIN,URINE NEGATIVE (NEGATIVE); COLOR,URINE YELLOW; GLUCOSE, URINE NEGATIVE (NEGATIVE); KETONES,URINE TRACE mg/dL (NEGATIVE); LEUKOCYTE ESTERASE,URINE NEGATIVE (NEGATIVE); NITRITE,URINE NEGATIVE (NEGATIVE); PROTEIN,URINE 30 mg/dL (NEGATIVE); URINE SPECIFIC GRAVITY 1.019; UROBILINOGEN,URINE NEGATIVE mg/dL (<2.0)
[2020-08-30 12:46] LABS: URINE AMPHETAMINES SCREEN NEGATIVE; URINE BARBITURATES SCREEN NEGATIVE; URINE BENZODIAZEPINES SCREEN NEGATIVE; URINE COCAINE SCREEN NEGATIVE; URINE MARIJUANA (THC) SCREEN NEGATIVE; URINE METHADONE SCREEN NEGATIVE; URINE PHENCYCLIDINE SCREEN NEGATIVE
[2020-08-30 14:30] VITALS: BP 104/75
--- NOTE | 2020-08-30 17:52 | EKG REPORT ---
SEVERITY:- NORMAL ECG - SINUS RHYTHM : Confirmed by: Rolo Casillas MD 30-Aug-2020 17:51:42
== END 2020-08-30 13:36 | disposition home health service (06) ==
LOC: ER 10:24
DX: G40.909 Epilepsy, unspecified, not intractable, without status epilepticus (principal); Z87.820 Personal history of traumatic brain injury; Z79.899 Other long term (current) drug therapy; Z79.82 Long term (current) use of aspirin; F17.200 Nicotine dependence, unspecified, uncomplicated
CPT/HCPCS: 93005; 99284; 96361; 96374; 36415; 80307 ×2; 83735; 85025; 80053; 81001; 93010; J7030; J1953

== ENCOUNTER → 2020-10-18 | Outpatient (CLI) | payer MEDICAID ==
[2020-10-18 11:32] LABS: HEMATOCRIT 49.5 % (37.9-51.0); HEMOGLOBIN 17.1 g/dL (13.5-17.0); MEAN CORPUSCULAR HGB CONC 34.6 g/dL (32.0-36.0); MEAN CORPUSCULAR VOLUME 92 fl (80-97); PLATELET COUNT 456 10^3/uL (150-450); RED BLOOD COUNT 5.36 10^6/uL (4.35-5.55); RED CELL DISTRIBUTION WIDTH 13.8 % (11.5-14.0); WHITE BLOOD COUNT 18.5 10^3/uL (4.0-10.5)
[2020-10-18 11:59] LABS: ALBUMIN 4.8 g/dL (3.5-5.0); ALKALINE PHOSPHATASE 74 U/L (38-126); ANION GAP 10 (5-19); ASPARTATE AMINO TRANSFERASE 22 U/L (17-59); BILIRUBIN,DIRECT 0.3 mg/dL (0.0-0.4); BILIRUBIN,TOTAL 0.7 mg/dL (0.2-1.3); BLOOD UREA NITROGEN 13 mg/dL (7-20); CALCIUM 9.8 mg/dL (8.4-10.2); CARBON DIOXIDE 27 mmol/L (22-30); CHLORIDE 104 mmol/L (98-107); CHOLESTEROL 235.54 mg/dL (0-200); GLUCOSE 81 mg/dL (75-110); POTASSIUM 5.2 mmol/L (3.6-5.0); TOTAL PROTEIN 8.3 g/dL (6.3-8.2); TRIGLYCERIDES 126 mg/dL (<150)
[2020-10-18 12:10] LABS: DIRECT LDL 167 mg/dL (<100)
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
== END ==
LOC: OD 09:19
PROVIDERS: ATTEND Family Medicine
DX: E78.5 Hyperlipidemia, unspecified (principal); N39.0 Urinary tract infection, site not specified; C63.7 Malignant neoplasm of other specified male genital organs; E87.0 Hyperosmolality and hypernatremia; E55.9 Vitamin D deficiency, unspecified
CPT/HCPCS: 36415; 80053; 80061; 82306; 84153; 85027